=== PATIENT | female | born 1970 | race American Indian/Alaskan Native ===

== ENCOUNTER 2016-08-08 06:09 | Day surgery (SDC) | payer MEDICARE ==
[~2016-08-08 06:09] MED LIST: ANCEF/STERILE WATER 2 GM/20 ML 2 GM/20 ML SYRINGE IV NR; NACL 0.9% 1000 ML 1,000 ML IV SCH
[2016-08-08] MEDS ORDERED: NACL BACTERIOSTATIC INFILTRATI ONE (06:33)
[2016-08-08] MEDS ORDERED: PEPCID PO NR (07:00)
[2016-08-08] MEDS ORDERED: VERSED IV NR (07:00)
[2016-08-08] MEDS ORDERED: SUBLIMAZE ONE (07:18)
[2016-08-08] MEDS ORDERED: XYLOCAINE CARDIAC IV ONE (07:18)
[2016-08-08] MEDS ORDERED: DIPRIVAN 10 MG/ML IV ONE (07:18)
--- NOTE | 2016-08-08 07:32 | Anesthesia Consultation ---
Anesthesia Consult and Med Hx - Airway Anesthetic Teeth Evaluation: Dentures ROM Head & Neck: Adequate Mental/Hyoid Distance: Adequate Mallampati Class: Class II Intubation Access Assessment: Probably Good - Pulmonary Exam CTA: Yes - Cardiac Exam Cardiac Exam: RRR - Pre-Operative Health Status ASA Pre-Surgery Classification: ASA3 Proposed Anesthetic Plan: General - Pulmonary Hx Asthma: Yes (uses inhaler) COPD: No Hx Pneumonia: Yes - Cardiovascular System Hx Hypertension: Yes - Central Nervous System Hx Psychiatric Problems: No - Gastrointestinal Hx Gastroesophageal Reflux Disease: Yes - Endocrine Hx Renal Disease: Yes (chronic kidney disease stage 4; recent dialysis) Hx End Stage Renal Disease: Yes Hx Liver Disease: No (HIV) - Hematic Hx Anemia: Yes Hx Sickle Cell Disease: No
[2016-08-08] MEDS ORDERED: PROTAMINE SULFATE ONE (08:00)
[2016-08-08] MEDS ORDERED: HEPARIN 10,000 UNITS/10 ML ONE (08:00)
[2016-08-08] MEDS ORDERED: ePHEDrine SULFATE ONE (08:24)
[2016-08-08] MEDS ORDERED: HEPARIN 10,000 UNITS/10 ML 2,000 UNIT in NACL 0.9% 500 ML 500 ML IR ONE (08:46)
[2016-08-08] MEDS ORDERED: MARCAINE 0.25% INFILTRATI ONE ×2 (08:51)
[2016-08-08] MEDS ORDERED: NACL 0.9% IR ONE (08:55)
[2016-08-08] MEDS ORDERED: SODIUM BICARBONATE ONE (10:45)
[2016-08-08] MEDS ORDERED: NACL 0.9% 500 ML ONE (10:45)
[2016-08-08] MEDS ORDERED: NACL 0.9% IV ONE (11:00)
[2016-08-08] MEDS ORDERED: DDAVP IV ONE (11:00)
[2016-08-08] MEDS ORDERED: ZOFRAN ONE (11:01)
--- NOTE | 2016-08-08 11:12 | Operative Report ---
Operative Report Operative Report: Date of procedure: 08/08/2016 Pre-operative diagnosis: Endstage renal disease Post-operative diagnosis: Same Procedure name(s): Left brachiobasilic transposition fistula stage II. Surgeon: Fidencio Brennan MD, RPVI [employer]ob Pipes Assembler: None Anesthesia: Gen./local Findings #1 adequate sized basilic vein. #2 adequate size brachial artery. #3 the vein had gentle curve in the tunnel with no kinking. #4 palpable thrill in the fistula. #5 palpable radial pulse. #6 adequate hemostasis. Specimens: None EBL: 75 mL IV fluids: 75 mL Urine output: 0 Disposition: The recovery Indications: End-stage renal disease. Status post stage I brachiobasilic fistula creation. Procedure Patient was brought to the operating room and laid on the table in supine position. After general LMA anesthesia was achieved the basilic vein was marked with an ultrasound. The patient was prepped and draped in usual sterile fashion. The incision over the basilic vein above the elbow was made using #15 blade. Subcutaneous tissue was divided with Bovie electrocautery. The basilic vein was located and dissected for the length of the incision. All branches were ligated using 4-0 silk ties. The vein was dissected underneath the skin proximally to the site of the previous anastomosis to achieve adequate length. The second incision was made distally with a skin bridge in between and the vein was dissected further. Another incision was made in the axilla was having the skin bridge for about 4 cm in between the incisions. The incision was deepened with Bovie electrocautery the basilic vein was dissected free the branches were ligated with 4-0 silk ties. The care was taken not to injure the brachial cutaneous nerves. The dissection continued cephalad all the way to where the basilic vein entered axillary vein. Once adequate length of the vein was dissected and the vein was completely mobilized attention was turned to the brachial artery. The curved tunneler was used to create a subcutaneous tunnel from the brachial artery to the basilic axillary confluence. The tunnel was made in the fashion to make sure that the vein will not kink. Patient received 2000 units of heparin. The vein was disconnected distally from the original anastomosis and irrigated with heparinized saline. The vein dilated very well . It was attached to the tunneler and tunneled underneath the skin. The care was made to confirm that there were no kink or twist in the tunnel. It was irrigated with heparinized saline and thrill felt that the other end. The portion of the vein attached to the artery was spatulated using the Mendez scissor the distal end of the vein in the tunnel was spatulated using Mendez scissors. Then anastomosis was created using 2 6-0 Prolene running sutures. Prior to completion of the anastomosis back bleeding maneuvers were performed and there was good backbleeding. Anastomosis was then was completed after it was irrigated with heparinized saline. Once the vessel loops were released there was strong thrill in the fistula and no bleeding. The wounds were then closed using 3-0 Vicryl subcutaneous and 4-0 Monocryl subcuticular closure. The graft had strong palpable thrill. Patient tolerated procedure well. At the end of the case all instrument, sponge, and needle counts were correct
--- NOTE | 2016-08-08 11:16 | Short Stay Summary ---
Short Stay Documentation - History H&P: obtained from office - Allergies and Medications Current Medications: Allergies No Known Allergies Allergy (Verified 10/01/13 16:51) Home Medications Medication Instructions Recorded Confirmed Last Taken Type Atazanavir Sulfate [Reyataz] 200 mg PO QDAY #30 capsule 01/06/14 08/08/16 Rx Emtricitabin/Tenofovir [TRUVADA 1 tab PO QDAY #30 tablet 01/06/14 08/08/1608/07 Rx 200-300 mg] Ritonavir [Norvir] 100 mg PO QDAY #30 cap 01/06/14 08/08/16 08/07/16 Rx ALBUTEROL NEB's [Proventil 0.083% 2.5 mg IH TID PRN #30 neb 07/20/14 08/06/16 Rx NEBS] ALBUTEROL Inhaler [ProAir HFA 2 puff IH QID PRN #1 can 07/05/16 08/06/16 Unknown Rx Inhaler] Budesoni/Formotero 160-4.5(Nf) 2 puff IH BID #1 can 07/05/16 08/08/16 08/07/16 Rx [Symbicort 160-4.5 (Nf)] Ferrous Sulfate [Feosol 325 MG tab] 325 mg PO TID #90 tablet 07/05/16 08/08/16 08/07/16 Rx Pantoprazole [Protonix TAB] 40 mg PO QDAY #30 tablet 07/05/16 08/08/16 08/07/16 Rx amLODIPine [Norvasc] 10 mg PO QDAY #30 tablet 07/05/16 08/08/16 08/07/16 Rx cloNIDine-TTS PATCH [Catapres-Tts 0.2 mg TD QWEEK #10 patch 07/05/16 08/08/16 Rx Patch] Active Medications Famotidine (Pepcid) 20 mg PO PREOP NR Stop: 08/08/16 23:59 Last Admin: 08/08/16 07:06 Dose: 20 mg Cefazolin Sodium (Ancef/Sterile Water 2 Gm/20 Ml) 2 gm in 20 mls @ 80 mls/hr IV PREOP NR PRN Reason: Protocol Stop: 08/08/16 23:59 Sodium Chloride (Nacl 0.9% 1000 Ml) 1,000 mls @ 42 mls/hr IV DIRECT YARELI Stop: 08/08/16 23:59 Last Admin: 08/08/16 06:40 Dose: 42 mls/hr Desmopressin Acetate 28 mcg/ (Sodium Chloride) 57 mls @ 114 mls/hr IV ONCE ONE Stop: 08/08/16 11:29 Midazolam HCl (Versed) 2 mg IV PREOP NR Stop: 08/08/16 23:59 Last Admin: 08/08/16 07:35 Dose: 2 mg - Brief post op/procedure progress note Procedure: Pre-operative diagnosis: Endstage renal disease Post-operative diagnosis: Same Procedure name(s): Left brachiobasilic transposition fistula stage II. Surgeon: Fidencio Brennan MD, VI Survey Methodologist: None Anesthesia: Gen./local Findings #1 adequate sized basilic vein. #2 adequate size brachial artery. #3 the vein had gentle curve in the tunnel with no kinking. #4 palpable thrill in the fistula. #5 palpable radial pulse. #6 adequate hemostasis. Specimens: None EBL: 75 mL IV fluids: 75 mL Urine output: 0 Disposition: The recovery Short Stay Discharge Plan Activity: advance as tolerated, other (no heavy lifting with the left arm for 4- 6 weeks. Keep left arm elevated) Weight Bearing Status: Full Weight Bearing Diet: renal Wound: open to air Additional Instructions: Follow-up with Dr. Brennan in 2 weeks. Follow up with: PRIMARY CAREMD [Primary Care Provider] - 7 Days
[2016-08-08] MEDS: DILAUDID IV PRN ×4 (11:27→12:00)
--- NOTE | 2016-08-08 11:27 | XRay Report ---
LEFT HUMERUS, ONE VIEW History: Instrument count. Findings: Single view of the left arm was obtained after surgery for instrument count. Notes say they are looking for a small needle. There is soft tissue swelling and gas in the medial upper left arm but no evidence for radiopaque foreign body. Tiny richard are noted. The humerus is intact. Impression: No radiopaque foreign body is detected.
[2016-08-08] MEDS ORDERED: DILAUDID ONE (11:28)
--- NOTE | 2016-08-08 12:02 | Post Anesthesia Evaluation ---
- Post Anesthesia Evaluation Airway Patent: Yes Stable Respiratory Function: Yes Nausea/Vomiting: No Temp > 96.8F: Yes Pain Manageable: Yes Adequeate Hydration: Yes Anesthesia Complications: No Block Receding Appropriately: Not Applicable Patient on Ventilator: No
[2016-08-08] MEDS ORDERED: VERSED IV PRN (12:07)
[2016-08-08 14:08] VITALS: BP 156/98
== END 2016-08-08 14:10 | disposition home or self-care (01) ==
LOC: OR 06:09
PROVIDERS: ATTEND Surgery Vascular Surgery
DX: I12.0 Hypertensive chronic kidney disease with stage 5 chronic kidney disease or end stage renal disease (principal); N18.6 End stage renal disease; J45.909 Unspecified asthma, uncomplicated; K21.9 Gastro-esophageal reflux disease without esophagitis; D64.9 Anemia, unspecified; Z87.01 Personal history of pneumonia (recurrent); Z98.51 Tubal ligation status
CPT/HCPCS: 36415; 36821; 73060; 81025; 84132; J0690; J1170; J1644; J2001; J2250; J2405; J2597; J2704; J2720; J3010; J7030; J7040

== ENCOUNTER 2016-08-18 10:49 | Emergency (ER) | payer MEDICARE ==
[2016-08-18 11:29] VITALS: BP 169/102
[2016-08-18 13:34] LABS: Albumin/Globulin Ratio 0.7 %; BUN/Creatinine Ratio 2.5; Bilirubin,Total 0.7 mg/dL (0.1-1.2); Calcium 9.2 mg/dL (8.4-10.2); Chloride 101.1 mmol/L (98-107); Potassium 4.5 mmol/L (3.6-5.0); Total Protein 7.4 g/dL (6.3-8.2)
[2016-08-18 13:44] LABS: Hematocrit 31.1 % (30.3-42.9); Hemoglobin 9.7 gm/dl (10.1-14.3); Mean Corpuscular HGB Conc 31 % (30-34); Mean Corpuscular Hemoglobin 27 pg (28-32); Mean Corpuscular Volume 88 fl (79-97); Platelet Count 133 K/mm3 (140-440); Red Blood Count 3.53 M/mm3 (3.65-5.03); Red Cell Distribution Width 20.3 % (13.2-15.2); White Blood Count 3.7 K/mm3 (4.5-11.0)
[2016-08-18 14:23] LABS: Anisocytosis 2+; Basophils % (Manual) 0 % (0.0-1.8); Blastocytes % (Manual) 0 %; Elliptocytes 1+
[2016-08-18 14:24] LABS: Diff Status Complete; Hypochromasia 1+; Ovalocytes 2+; Poikilocytosis Few; Tear Drop Cells 1+
--- NOTE | 2016-08-18 17:05 | Emergency Department Report ---
ED Abdominal Pain HPI - General Chief Complaint: Abdominal Pain Stated Complaint: SEVERE CONSTIPATION Time Seen by Provider: 08/18/16 16:21 Source: patient Mode of arrival: Ambulatory Limitations: No Limitations - History of Present Illness Initial Comments: 45-year-old female presented to the emergency department complaining of constipation. Patient states she has not had a bowel movement approximately one week. Patient has been taking Percocet following the recent placement of a left arm fistula for dialysis. She states she has been taking MiraLAX, but has had no relief. Patient states she began having mild nausea last night, but has not vomited. There are no other complaints. -: Gradual, week(s) (1) Location: diffuse Radiation: none Severity: mild Severity scale (0 -10): 1 Quality: cramping Consistency: intermittent Improves With: nothing Worsens With: nothing Associated Symptoms: nausea, constipation - Related Data Previous Rx's Medication Instructions Recorded Last Taken Type Atazanavir Sulfate [Reyataz] 200 mg PO QDAY #30 capsule 01/06/14 08/07/16 Rx Emtricitabin/Tenofovir [TRUVADA 1 tab PO QDAY #30 tablet 01/06/14 08/07/16 Rx 200-300 mg] Ritonavir [Norvir] 100 mg PO QDAY #30 cap 01/06/14 08/07/16 Rx ALBUTEROL NEB's [Proventil 0.083% 2.5 mg IH TID PRN #30 neb 07/20/14 07/02/16 Rx NEBS] ALBUTEROL Inhaler [ProAir HFA 2 puff IH QID PRN #1 can 07/05/16 Unknown Rx Inhaler] Budesoni/Formotero 160-4.5(Nf) 2 puff IH BID #1 can 07/05/16 08/07/16 Rx [Symbicort 160-4.5 (Nf)] Ferrous Sulfate [Feosol 325 MG tab] 325 mg PO TID #90 tablet 07/05/16 08/07/16 Rx Pantoprazole [Protonix TAB] 40 mg PO QDAY #30 tablet 07/05/16 08/07/16 Rx amLODIPine [Norvasc] 10 mg PO QDAY #30 tablet 07/05/16 08/07/16 Rx cloNIDine-TTS PATCH [Catapres-Tts 0.2 mg TD QWEEK #10 patch 07/05/16 08/07/16 Rx Patch] oxyCODONE /ACETAMINOPHEN [Percocet 1 - 2 tab PO Q4HR #40 tab 08/08/16 Unknown Rx 5/325] Docusate Sodium [Colace] 100 mg PO BID PRN #60 capsule 08/18/16 Unknown Rx Magnesium Citrate [Citrate of 300 ml PO ONCE #1 bottle 08/18/16 Unknown Rx Magnesia] Allergies Allergy/AdvReac Type Severity Reaction Status Date / Time No Known Allergies Allergy Verified 10/01/13 16:51 ED Review of Systems ROS: Stated complaint: SEVERE CONSTIPATION Other details as noted in HPI Comment: All other systems reviewed and negative Gastrointestinal: abdominal pain, nausea, constipation ED Past Medical Hx - Past Medical History Previous Medical History?: Yes Hx Hypertension: Yes Hx Congestive Heart Failure: No Hx Diabetes: No Hx GERD: Yes Hx Liver Disease: No Hx Renal Disease: Yes (dialysis) Hx Sickle Cell Disease: No Hx Asthma: Yes (uses inhaler) Hx COPD: No Hx HIV: Yes Additional medical history: anemia, uterine fibroids - Surgical History Past Surgical History?: Yes Additional Surgical History: Bilateral tubal ligation, left chest PermCath, LUE fistula - Family History Family history: no significant - Social History Smoking Status: Never Smoker Substance Use Type: None - Medications Home Medications: Home Medications Medication Instructions Recorded Confirmed Last Taken Type Atazanavir Sulfate [Reyataz] 200 mg PO QDAY #30 capsule 01/06/14 08/08/16 Rx Emtricitabin/Tenofovir [TRUVADA 1 tab PO QDAY #30 tablet 01/06/14 08/08/1608/07 Rx 200-300 mg] Ritonavir [Norvir] 100 mg PO QDAY #30 cap 01/06/14 08/08/16 08/07/16 Rx ALBUTEROL NEB's [Proventil 0.083% 2.5 mg IH TID PRN #30 neb 07/20/14 08/06/16 Rx NEBS] ALBUTEROL Inhaler [ProAir HFA 2 puff IH QID PRN #1 can 07/05/16 08/06/16 Unknown Rx Inhaler] Budesoni/Formotero 160-4.5(Nf) 2 puff IH BID #1 can 07/05/16 08/08/16 08/07/16 Rx [Symbicort 160-4.5 (Nf)] Ferrous Sulfate [Feosol 325 MG tab] 325 mg PO TID #90 tablet 07/05/16 08/08/16 08/07/16 Rx Pantoprazole [Protonix TAB] 40 mg PO QDAY #30 tablet 07/05/16 08/08/16 08/07/16 Rx amLODIPine [Norvasc] 10 mg PO QDAY #30 tablet 07/05/16 08/08/16 08/07/16 Rx cloNIDine-TTS PATCH [Catapres-Tts 0.2 mg TD QWEEK #10 patch 07/05/16 08/08/16 Rx Patch] oxyCODONE /ACETAMINOPHEN [Percocet 1 - 2 tab PO Q4HR #40 tab 08/08/16 Unknown Rx 5/325] Docusate Sodium [Colace] 100 mg PO BID PRN #60 capsule 08/18/16 Unknown Rx Magnesium Citrate [Citrate of 300 ml PO ONCE #1 bottle 08/18/16 Unknown Rx Magnesia] ED Physical Exam - General Limitations: No Limitations General appearance: alert, in no apparent distress - Head Head exam: Present: atraumatic, normocephalic - Eye Eye exam: Present: normal appearance, PERRL, EOMI - ENT ENT exam: Present: normal exam, normal orophraynx, mucous membranes moist - Neck Neck exam: Present: normal inspection, full ROM. Absent: tenderness - Respiratory Respiratory exam: Present: normal lung sounds bilaterally. Absent: respiratory distress - Cardiovascular Cardiovascular Exam: Present: regular rate, normal rhythm, normal heart sounds - GI/Abdominal GI/Abdominal exam: Present: soft, hyperactive bowel sounds. Absent: distended, tenderness - Extremities Exam Extremities exam: Present: normal inspection, full ROM. Absent: tenderness - Back Exam Back exam: Present: normal inspection, full ROM. Absent: tenderness - Neurological Exam Neurological exam: Present: alert, oriented X3. Absent: motor sensory deficit - Skin Skin exam: Present: warm, dry, intact ED Course Vital Signs 08/18/16 08/18/16 11:18 16:00 Temperature 98.5 F Pulse Rate 69 Respiratory 18 18 Rate Blood Pressure 169/102 O2 Sat by Pulse 99 Oximetry ED Medical Decision Making - Lab Data Result diagrams: 08/18/16 13:06 08/18/16 13:06 - Radiology Data Radiology results: image reviewed interpreted by me: 2 views of the abdomen show moderate stool burden without evidence of bowel obstruction. - Medical Decision Making Lab and imaging results reviewed and discussed with the patient. Patient is offered an enema to help with her constipation. At this time, patient is declining enema and would rather take magnesium citrate at home. Patient will be prescribed this as well as Colace for stool softener. Patient will be discharged home to follow up with her primary care physician. - Differential Diagnosis opioid induced constipation Critical care attestation.: If time is entered above; I have spent that time in minutes in the direct care of this critically ill patient, excluding procedure time. ED Disposition Clinical Impression: Constipation due to pain medication Disposition: DISCHARGED TO HOME OR SELFCARE Is pt being admited?: No Condition: Stable Instructions: Constipation (ED) Prescriptions: Docusate Sodium [Colace] 100 mg PO BID PRN #60 capsule PRN Reason: Constipation Magnesium Citrate [Citrate of Magnesia] 300 ml PO ONCE #1 bottle Referrals: PRIMARY CARE, [Primary Care Provider] - 3-5 Days Time of Disposition: 17:08
--- NOTE | 2016-08-19 09:59 | XRay Report ---
ABDOMINAL SERIES TWO VIEWS: 08/18/16 10:49:00 CLINICAL: Abdominal pain. FINDINGS: Supine and upright views demonstrate a normal bowel gas pattern with a large volume of stool in the colon. No distended small bowel and no air-fluid levels. No pneumoperitoneum. No mass or suspicious calcifications. Phleboliths in the pelvis. Degenerative change in the spine. IMPRESSION: Negative abdomen with abundant stool.
== END 2016-08-18 17:15 | disposition home or self-care (01) ==
LOC: ED 10:49
DX: K59.00 Constipation, unspecified (principal); I10 Essential (primary) hypertension; K21.9 Gastro-esophageal reflux disease without esophagitis; J45.909 Unspecified asthma, uncomplicated; D64.9 Anemia, unspecified
CPT/HCPCS: 36415; 74020; 80053; 83690; 84703; 85007; 85025

== ENCOUNTER 2017-02-06 14:33 | Emergency (ER) | payer MEDICARE ==
[2017-02-06 15:04] VITALS: BP 138/79
[2017-02-06] MEDS ORDERED: BOOSTRIX IM ONE (20:08)
--- NOTE | 2017-02-07 04:02 | Emergency Department Report ---
Entered by VINNIE JERNIGAN, acting as scribe for MASSIMO DAO NP. - General Chief complaint: Skin Rash Stated complaint: RASH ON RIGHT SIDE OF CHEST Time Seen by Provider: 02/06/17 19:24 Source: patient Mode of arrival: Ambulatory Limitations: No Limitations - History of Present Illness Initial comments: This is a 46 y/o female, nontoxic, well nourished in appearance, no acute signs of distress with a PMHx of HTN, GERD, asthma, HIV, renal disease, anemia, and uterine fibroids presents with a rash to the right side of back that began 2 days ago. Describes the rash as burning in quality. Pt denies fever, chills, nausea, vomiting, cough, chest pain, SOB, SIMPSON or dizziness, numbness, and tingling. Patient reports this rash is similar to her previous Shingles rash, which was alleviated with Acyclovir. NKDA. Patient stated CD4 count is above 200. MD complaint: rash Onset/Timin -: days(s) Tetanus Up to Date: no Location: back (RT side) Severity: mild Quality: burning Consistency: constant Improves with: medication Worsens with: none (Acyclovir) Context: none Associated symptoms: denies other symptoms Treatments Prior to Arrival: none - Related Data Previous Rx's Medication Instructions Recorded Last Taken Type Atazanavir Sulfate [Reyataz] 200 mg PO QDAY #30 capsule 01/06/14 08/07/16 Rx Emtricitabin/Tenofovir [TRUVADA 1 tab PO QDAY #30 tablet 01/06/14 08/07/16 Rx 200-300 mg] Ritonavir [Norvir] 100 mg PO QDAY #30 cap 01/06/14 08/07/16 Rx ALBUTEROL NEB's [Proventil 0.083% 2.5 mg IH TID PRN #30 neb 07/20/14 07/02/16 Rx NEBS] ALBUTEROL Inhaler [ProAir HFA 2 puff IH QID PRN #1 can 07/05/16 Unknown Rx Inhaler] Budesoni/Formotero 160-4.5(Nf) 2 puff IH BID #1 can 07/05/16 08/07/16 Rx [Symbicort 160-4.5 (Nf)] Ferrous Sulfate [Feosol 325 MG tab] 325 mg PO TID #90 tablet 07/05/16 08/07/16 Rx Pantoprazole [Protonix TAB] 40 mg PO QDAY #30 tablet 07/05/16 08/07/16 Rx amLODIPine [Norvasc] 10 mg PO QDAY #30 tablet 07/05/16 08/07/16 Rx cloNIDine-TTS PATCH [Catapres-Tts 0.2 mg TD QWEEK #10 patch 07/05/16 08/07/16 Rx Patch] oxyCODONE /ACETAMINOPHEN [Percocet 1 - 2 tab PO Q4HR #40 tab 08/08/16 Unknown Rx 5/325] Docusate Sodium [Colace] 100 mg PO BID PRN #60 capsule 08/18/16 Unknown Rx Magnesium Citrate [Citrate of 300 ml PO ONCE #1 bottle 08/18/16 Unknown Rx Magnesia] Acyclovir [Zovirax Tab] 800 mg PO 5XD 10 Days 02/06/17 Unknown Rx Allergies Allergy/AdvReac Type Severity Reaction Status Date / Time No Known Allergies Allergy Verified 02/06/17 15:01 Abscess Boil HPI - HPI Chief Complaint: Skin Rash Stated Complaint: RASH ON RIGHT SIDE OF CHEST Time Seen by Provider: 02/06/17 19:24 Home Medications: Previous Rx's Medication Instructions Recorded Last Taken Type Atazanavir Sulfate [Reyataz] 200 mg PO QDAY #30 capsule 01/06/14 08/07/16 Rx Emtricitabin/Tenofovir [TRUVADA 1 tab PO QDAY #30 tablet 01/06/14 08/07/16 Rx 200-300 mg] Ritonavir [Norvir] 100 mg PO QDAY #30 cap 01/06/14 08/07/16 Rx ALBUTEROL NEB's [Proventil 0.083% 2.5 mg IH TID PRN #30 neb 07/20/14 07/02/16 Rx NEBS] ALBUTEROL Inhaler [ProAir HFA 2 puff IH QID PRN #1 can 07/05/16 Unknown Rx Inhaler] Budesoni/Formotero 160-4.5(Nf) 2 puff IH BID #1 can 07/05/16 08/07/16 Rx [Symbicort 160-4.5 (Nf)] Ferrous Sulfate [Feosol 325 MG tab] 325 mg PO TID #90 tablet 07/05/16 08/07/16 Rx Pantoprazole [Protonix TAB] 40 mg PO QDAY #30 tablet 07/05/16 08/07/16 Rx amLODIPine [Norvasc] 10 mg PO QDAY #30 tablet 07/05/16 08/07/16 Rx cloNIDine-TTS PATCH [Catapres-Tts 0.2 mg TD QWEEK #10 patch 07/05/16 08/07/16 Rx Patch] oxyCODONE /ACETAMINOPHEN [Percocet 1 - 2 tab PO Q4HR #40 tab 08/08/16 Unknown Rx 5/325] Docusate Sodium [Colace] 100 mg PO BID PRN #60 capsule 08/18/16 Unknown Rx Magnesium Citrate [Citrate of 300 ml PO ONCE #1 bottle 08/18/16 Unknown Rx Magnesia] Acyclovir [Zovirax Tab] 800 mg PO 5XD 10 Days 02/06/17 Unknown Rx Allergies/Adverse Reactions: Allergies Allergy/AdvReac Type Severity Reaction Status Date / Time No Known Allergies Allergy Verified 02/06/17 15:01 ED Review of Systems Comment: All other systems reviewed and negative Constitutional: denies: chills, fever Eyes: denies: eye pain, eye discharge, vision change ENT: denies: ear pain, throat pain Respiratory: denies: cough, orthopnea, shortness of breath, SOB with exertion, SOB at rest, stridor, wheezing Cardiovascular: denies: chest pain, palpitations, dyspnea on exertion, orthopnea , edema, syncope, paroxysmal nocturnal dyspnea Endocrine: no symptoms reported Gastrointestinal: denies: abdominal pain, nausea, diarrhea Genitourinary: denies: urgency, dysuria, discharge Musculoskeletal: denies: back pain, joint swelling, arthralgia, myalgia Skin: rash (RT side of back). denies: lesions Neurological: denies: headache, weakness, numbness, paresthesias, confusion, abnormal gait, vertigo Psychiatric: denies: anxiety, depression Hematological/Lymphatic: denies: easy bleeding, easy bruising ED Past Medical Hx - Past Medical History Hx Hypertension: Yes Hx Congestive Heart Failure: No Hx Diabetes: No Hx GERD: Yes Hx Liver Disease: No Hx Renal Disease: Yes (dialysis) Hx Sickle Cell Disease: No Hx Asthma: Yes (uses inhaler) Hx COPD: No Hx HIV: Yes Additional medical history: anemia, uterine fibroids - Surgical History Additional Surgical History: Bilateral tubal ligation, left chest PermCath, LUE fistula - Social History Smoking Status: Never Smoker Substance Use Type: None - Medications Home Medications: Home Medications Medication Instructions Recorded Confirmed Last Taken Type Atazanavir Sulfate [Reyataz] 200 mg PO QDAY #30 capsule 01/06/14 08/08/16 Rx Emtricitabin/Tenofovir [TRUVADA 1 tab PO QDAY #30 tablet 01/06/14 08/08/1608/07 Rx 200-300 mg] Ritonavir [Norvir] 100 mg PO QDAY #30 cap 01/06/14 08/08/16 08/07/16 Rx ALBUTEROL NEB's [Proventil 0.083% 2.5 mg IH TID PRN #30 neb 07/20/14 08/06/16 Rx NEBS] ALBUTEROL Inhaler [ProAir HFA 2 puff IH QID PRN #1 can 07/05/16 08/06/16 Unknown Rx Inhaler] Budesoni/Formotero 160-4.5(Nf) 2 puff IH BID #1 can 07/05/16 08/08/16 08/07/16 Rx [Symbicort 160-4.5 (Nf)] Ferrous Sulfate [Feosol 325 MG tab] 325 mg PO TID #90 tablet 07/05/16 08/08/16 08/07/16 Rx Pantoprazole [Protonix TAB] 40 mg PO QDAY #30 tablet 07/05/16 08/08/16 08/07/16 Rx amLODIPine [Norvasc] 10 mg PO QDAY #30 tablet 07/05/16 08/08/16 08/07/16 Rx cloNIDine-TTS PATCH [Catapres-Tts 0.2 mg TD QWEEK #10 patch 07/05/16 08/08/16 Rx Patch] oxyCODONE /ACETAMINOPHEN [Percocet 1 - 2 tab PO Q4HR #40 tab 08/08/16 Unknown Rx 5/325] Docusate Sodium [Colace] 100 mg PO BID PRN #60 capsule 08/18/16 Unknown Rx Magnesium Citrate [Citrate of 300 ml PO ONCE #1 bottle 08/18/16 Unknown Rx Magnesia] Acyclovir [Zovirax Tab] 800 mg PO 5XD 10 Days 02/06/17 Unknown Rx ED Physical Exam - General Limitations: No Limitations General appearance: alert, in no apparent distress - Head Head exam: Present: atraumatic, normocephalic - Eye Eye exam: Present: normal appearance, PERRL, EOMI. Absent: scleral icterus, conjunctival injection, nystagmus, periorbital swelling, periorbital tenderness Pupils: Present: normal accommodation - ENT ENT exam: Present: normal exam, normal orophraynx, mucous membranes moist, TM's normal bilaterally, normal external ear exam - Neck Neck exam: Present: normal inspection, full ROM. Absent: tenderness, meningismus, lymphadenopathy, thyromegaly - Respiratory Respiratory exam: Present: normal lung sounds bilaterally. Absent: respiratory distress, wheezes, rales, rhonchi, stridor, chest wall tenderness, accessory muscle use, decreased breath sounds, prolonged expiratory - Cardiovascular Cardiovascular Exam: Present: regular rate, normal rhythm, normal heart sounds. Absent: bradycardia, tachycardia, irregular rhythm, systolic murmur, diastolic murmur, rubs, gallop - GI/Abdominal GI/Abdominal exam: Present: soft, normal bowel sounds. Absent: distended, tenderness, guarding, rebound, rigid - Extremities Exam Extremities exam: Present: normal inspection, full ROM, normal capillary refill. Absent: tenderness, pedal edema, joint swelling, calf tenderness - Back Exam Back exam: Present: full ROM, rash noted (RT side of back consistent with shingles). Absent: normal inspection, tenderness, CVA tenderness (R), CVA tenderness (L), muscle spasm, paraspinal tenderness, vertebral tenderness - Neurological Exam Neurological exam: Present: alert, oriented X3, CN II-XII intact, normal gait, reflexes normal. Absent: motor sensory deficit - Psychiatric Psychiatric exam: Present: normal affect, normal mood - Skin Skin exam: Present: warm, dry, intact, rash (dermatome rash with erythematous papules and vesicles present to the right side of the back that is consistent with the shingles) ED Course Vital Signs 02/06/17 15:01 Temperature 99 F Pulse Rate 91 H Respiratory 18 Rate Blood Pressure 138/79 O2 Sat by Pulse 99 Oximetry - Reevaluation(s) Reevaluation #1: 02/06/17 20:10 Patient is speaking in full sentences with no signs of distress ntoed. ED Medical Decision Making - Medical Decision Making This is a 46-year-old female that presents with shingles. Patient was examined myself. Patient is stable. Patient received acyclovir discharge. Patient instructed that this is a contact should be cautious. Patient was instructed not to consume any alcohol while taking medication. At time time of discharge, the patient does not seem toxic or ill in appearance. No acute signs of distress noted. Patient agrees to discharge treatment plan of care. No further questions noted by the patient. ED Disposition Clinical Impression: Shingles Qualifiers: Herpes zoster complications: unspecified herpes zoster complication Qualified Code(s): B02.8 - Zoster with other complications Disposition: - TO HOME OR SELFCARE Is pt being admited?: No Does the pt Need Aspirin: No Condition: Stable Instructions: Acyclovir (By mouth), Herpes Zoster (ED) Additional Instructions: Follow-up with your primary care doctor in 3-5 days or symptoms worsen or continue presents emergency room as soon as possible. Do not drink any alcohol while taking Acyclovir. Please be advised that this is a contact precaution. Prescriptions: Acyclovir [Zovirax Tab] 800 mg PO 5XD 10 Days Referrals: PRIMARY CAREMD [Primary Care Provider] - 3-5 Days ARTEMIO BARRERA MD [Staff Physician] - 3-5 Days [facility] [Outside] - 3-5 Days [facility] [Outside] - 3-5 Days Forms: Work/School Release Form(ED) This documentation as recorded by the RERE kaiser JASMINE,accurately reflects the service I personally performed and the decisions made by ,MASSIMO DAO, LEOBARDO.
== END 2017-02-06 21:44 | disposition home or self-care (01) ==
LOC: ED 14:33
DX: B02.8 Zoster with other complications (principal); I10 Essential (primary) hypertension; K21.9 Gastro-esophageal reflux disease without esophagitis
CPT/HCPCS: 90471; 90715; 99281

== ENCOUNTER 2017-04-11 11:02 | Day surgery (SDC) | payer MEDICARE ==
[2017-04-11] MEDS ORDERED: HEPARIN/NS 5000 UNIT/500ML(CATH LAB) 1,000 ML IR ONE (13:57)
[2017-04-11] MEDS ORDERED: HEPARIN 10,000 UNITS/10 ML ONE (13:57)
[2017-04-11] MEDS ORDERED: ANCEF/STERILE WATER 2 GM/20 ML 2 GM/20 ML SYRINGE IV ONE (13:58)
[2017-04-11] MEDS ORDERED: NACL 0.9% 250ML 250 ML ONE ×2 (13:58→14:04)
[2017-04-11] MEDS ORDERED: XYLOCAINE 2% INFILTRATI ONE (13:58)
[2017-04-11] MEDS: VERSED ONE ×5 (14:22→15:07)
[2017-04-11] MEDS: SUBLIMAZE ONE ×6 (14:22→15:22)
[2017-04-11] MEDS ORDERED: CATHFLO ONE (14:36)
[2017-04-11] MEDS ORDERED: WATER FOR INJ (PF) 10 ML ONE (14:37)
[2017-04-11] MEDS ORDERED: SUBLIMAZE ONE (15:37)
[2017-04-11] MEDS ORDERED: BENADRYL ONE (15:39)
--- NOTE | 2017-04-11 16:11 | Short Stay Summary ---
Short Stay Documentation Date of service: 04/11/17 Narrative H&P: 46 year old female with ESRD with brachial artery to basilic vein thrombosed AVF. - History Principal diagnosis: Left arm AVF malfunction Past Medical History: dialysis Past Surgical History: Other (left brachial artery to basilic vein transposition ) - Allergies and Medications Current Medications: Allergies No Known Allergies Allergy (Verified 02/06/17 15:01) Home Medications Medication Instructions Recorded Confirmed Last Taken Type ALBUTEROL NEB's [Proventil 0.083% 2.5 mg IH TID PRN #30 neb 07/20/14 04/11/17 Rx NEBS] unit dose ALBUTEROL Inhaler [ProAir HFA 2 puff IH QID PRN #1 can 07/05/16 04/11/17 Rx Inhaler] 2 puffs Budesoni/Formotero 160-4.5(Nf) 2 puff IH BID #1 can 07/05/16 04/11/17 08/07/16 Rx [Symbicort 160-4.5 (Nf)] Docusate Sodium [Colace] 100 mg PO BID PRN #60 capsule 08/18/16 04/11/17 Rx 100mg Abacavir [Ziagen TAB] 2 tab PO DAILY 04/11/17 04/11/17 04/10/17 History 1 tab Darunavir/Cobicistat (Nf) 1 tab PO DAILY 04/11/17 04/11/17 04/10/17 History [Prezcobix 800 mg-150 mg (Nf)] 1 tab Losartan Potassium [Losartan 1 tab PO DAILY 04/11/17 04/11/17 04/11/17 04:00 History Potassium] 100mg lamiVUDine [Epivir] 1 tab PO Q48HR 04/11/17 04/11/17 04/09/17 History 1 tab - Physical exam General appearance: no acute distress Lungs: Normal air movement Gastrointestinal: normal Extremities: normal temperature, normal color, abnormal (thrombosed left AVF) - Brief post op/procedure progress note Date of procedure: 04/11/17 Pre-op diagnosis: left arm AVF Post-op diagnosis: same Procedure: thrombectomy of left AVF Anesthesia: local (w/ conscious sedation) Surgeon: FAMILIA ROSS KAYLEE Estimated blood loss: minimal Condition: stable - Hospital course Hospital course: Ready for discharge in 1 hr. - Disposition Condition at discharge: Stable Disposition: DC-01 TO HOME OR SELFCARE - Discharge Diagnoses (1) Malfunction of arteriovenous shunt Status: Acute Short Stay Discharge Plan Activity: advance as tolerated Weight Bearing Status: Weight Bear as Tolerated Diet: renal Wound: keep clean and dry (keep left AVF clean) Follow up with: PRIMARY CAREMD [Primary Care Provider] - 7 Days
--- NOTE | 2017-04-11 16:19 | Operative Report ---
Operative Report Operative Report: EXAM: 1. Ultrasound-guided access towards the venous outflow 2. Selection of the left innominate vein and left subclavian vein with venography 3. Infusion of 4 mg of TPA throughout the basilic vein AV fistula 4. Angioplasty of the axillary vein and basilic vein with a 7 mm x 200 mm [place] balloon 5. Trerotola Mechanical thrombectomy of the basilic vein 6. Nate thrombectomy from the basilic vein to the venous outflow 7. Ultrasound-guided access towards the arterial anastomosis 8. Selection of the brachial artery and a retrograde fashion with angiography of the left upper extremity 9. Nate thrombectomy from the anastomosis to the arterial sheath 10. Nate thrombectomy from the venous sheath to the venous outflow 11. Angioplasty of the anastomosis, Nando anastomotic segment, and peripheral basilic vein with a 6 mm x 120 mm angioplasty balloon 12. Angioplasty of the distal basilic vein and axillary vein with an 8 mm x 40 mm angioplasty balloon INDICATION: THROMBOSED LEFT ARM AV BRACHIO BASILIC AVF WITH END-STAGE RENAL DISEASE. DATE: 04/11/17 MEDICATIONS: Please refer to nursing documentation for complete list of medications and heparin administration. VERSED AND FENTANYL TITRATED TO MODERATE SEDATION. THE PATIENT WAS MONITORED UNDER CONTINUOUS CARDIOPULMONARY MONITORING THROUGHOUT THE CASE. COMPLICATIONS: NONE IMMEDIATE VP DIGITAL MARKETING: FAMILIA PAGE MD PROCEDURE: The procedure was discussed with the patient and the risks, benefits, and alternatives were discussed with the patient. Informed consent was obtained. The patient was transported into the angiography suite in stable condition and placed on the angiographic table. The left arm was assessed under real-time ultrasound which demonstrated a thrombosed left arm AV fistula. The patient was prepped and draped in a sterile fashion. Lidocaine was used to anesthetize the skin. Under ultrasound guidance, the AV fistula was punctured with the needle pointing towards the venous limb. 0.018 inch wire was advanced through the needle and this was exchanged for a transitional dilator. The inner dilator and wire were removed and a 0.035 inch Brice wire was advanced through the transitional dilator. The dilator was exchanged for a 7 Barbadian short sheath. Angled catheter was advanced over the wire and the wire was advanced into the inferior vena cava under fluoroscopic guidance. Then the wire was removed and the Angled catheter was used to perform a pullback venogram. Digital subtraction venography was performed in the left brachiocephalic vein and subsequently the left subclavian vein which demonstrated no central obstruction to flow. The catheter was pulled back until clot was encountered. 4 mg of TPA were infused through the length of the clot to the sheath as the arterial anastomosis was manually compressed. Catheter was exchanged for an 7 mm x 200 mm balloon and the venous limb was sequentially venoplasty. Trerotola thrombectomy device was used multiple times through the venous limb. Trerotola device was then removed. Angled catheter and Brice wire were negotiated into the inferior vena cava. The nate balloon was used to sweep from the sheath to the central veins. The arm was then punctured towards the arterial anastomosis under ultrasound guidance. 0.018 inch wire was advanced through the needle and exchanged for transitional dilator. The inner dilator and wire were removed and a 0.035 inch Brice wire was advanced to the transitional dilator. The dilator was exchanged for 6 Barbadian short sheath. The angled catheter was advanced over the 0.035 wire and the wire was advanced into the cabazon brachial artery in a retrograde fashion. Digital subtraction angiography was performed which demonstrated patency of the brachial artery proximal and distal to the anastomosis with occlusion of the basilic vein AV fistula. Nate catheter was inflated and use to sweep the anastomosis multiple times, pulling the plug towards the venous limb. Nate does then used to sweep from the venous sheath to the central veins. Blood was aspirated from both sheaths. Nate catheter was exchanged for the angled catheter and digital subtraction angiography was performed. This demonstrated severe narrowing of the para anastomotic portion of the AV fistula and peripheral portion of the AV fistula with mild narrowing of the arterial anastomosis. There is a small amount of residual clot in the midportion of the basilic vein. The distal basilic vein has severe narrowing and there is severe narrowing of the axillary vein. 6 mm x 120 mm angioplasty balloon was advanced into the perianastomotic, peripheral portion of the basilic vein, and anastomosis and sequentially angioplasty was performed. Digital subtraction angiography demonstrated resolution of the anastomosis, perianastomotic, and peripheral portion of the basilic vein narrowing. Trerotola thrombectomy was then performed of the midportion of the basilic vein. Digital subtraction angiography demonstrated resolution of the residual thrombus in the basilic vein. 8 mm x 40 mm angioplasty balloon was used to perform angioplasty of the distal basilic vein in the axillary vein. Sequential angioplasty was performed. Digital subtraction angiography done demonstrated minimal residual narrowing. There was an excellent thrill in the AV fistula. All the wires were removed. 3-0 Vicryl sutures were used to close the fistula access sites. During the procedure, one of the dialysis access sites began to bleed and was closed with 4-0 Vicryl. Dermabond was applied. Pressure was held until hemostasis was achieved. The patient was then transferred to the outpatient recovery area. FINDINGS: Please see the procedure note for the findings. IMPRESSION: 1. Successful pharmacomechanical thrombectomy of the thrombosed left AV fistula. 2. Successful venoplasty of the axillary vein stent, entirety of the basilic vein, and arterial anastomosis.
[2017-04-11] MEDS ORDERED: PERCOCET 5/325 PO ONE (16:20)
[2017-04-11 17:17] VITALS: BP 180/99
== END 2017-04-11 17:15 | disposition home or self-care (01) ==
LOC: CATHLABREC 11:02
PROVIDERS: ATTEND Radiology Diagnostic Radiology
DX: T82.868A Thrombosis due to vascular prosthetic devices, implants and grafts, initial encounter (principal); Y83.1 Surgical operation with implant of artificial internal device as the cause of abnormal reaction of the patient, or of later complication, without mention of misadventure at the time of the procedure; Z79.899 Other long term (current) drug therapy; I12.0 Hypertensive chronic kidney disease with stage 5 chronic kidney disease or end stage renal disease; N18.6 End stage renal disease; J45.909 Unspecified asthma, uncomplicated; K21.9 Gastro-esophageal reflux disease without esophagitis; Z82.49 Family history of ischemic heart disease and other diseases of the circulatory system; Z98.51 Tubal ligation status; Z98.890 Other specified postprocedural states; Z80.8 Family history of malignant neoplasm of other organs or systems
CPT/HCPCS: 36415; 36905; 84132; 99156; 99157; C1725; C1751; C1757; C1769; C1894; J0690; J1200; J1644; J2250; J2997; J3010; J7050; Q9967

== ENCOUNTER → 2018-01-09 | Outpatient (CLI) | payer MEDICARE ==
--- NOTE | 2018-01-09 17:28 | Cat Scan Report ---
FINAL REPORT EXAM: CT CHEST WO CON HISTORY: END STAGE RENAL DISEASE TECHNIQUE: Axial images were performed from the lung apices to the bases. Multiplanar reformats are performed on the acquisition scanner. Total exam DLP 654.37 mGy-cm Comparison: 09/02/2017 at which time there were patchy infiltrates in the right lung base FINDINGS: There are again noted patchy and somewhat more diffuse infiltrates in the right lung base compared with previous exam. There has been interval development of a peripheral subpleural masslike density measuring 3.1 x 1.6 centimeters. This finding could represent a mass, consolidation, or a peripheral infarct. There are additional smaller areas of pleural nodularity in the lateral right posterior costophrenic sulcus which are also new. Exam is markedly motion degraded. Heart size is enlarged. Cannot assess for pulmonary embolus without IV contrast. There are multiple prominent mediastinal lymph nodes. There is a hiatal hernia with distal mucosal nodular thickening at the GE junction. There is hepatic splenomegaly. The kidneys are atrophic. IMPRESSION: Previously noted patchy and somewhat nodular right lower lobe infiltrate has become more diffuse on the current study. Interval development of pleural based density in the posterior right lower lobe which may represent a "hamptons hump " of infarct. Consider pulmonary embolus. Alternatively finding could represent consolidation or less likely mass given the time of development. No associated pleural effusion. Consider V/Q as the patient has renal insufficiency. Atrophic kidneys. Cardiomegaly. Nodular thickening of the distal esophagus at the GE junction. Consider upper endoscopy.
== END | disposition home or self-care (01) ==
LOC: XRAY 15:52
PROVIDERS: ATTEND Internal Medicine Nephrology
DX: I12.0 Hypertensive chronic kidney disease with stage 5 chronic kidney disease or end stage renal disease (principal); N18.6 End stage renal disease; K44.9 Diaphragmatic hernia without obstruction or gangrene; R16.1 Splenomegaly, not elsewhere classified; I51.7 Cardiomegaly; J18.9 Pneumonia, unspecified organism; J45.909 Unspecified asthma, uncomplicated; K21.9 Gastro-esophageal reflux disease without esophagitis
CPT/HCPCS: 71250

== ENCOUNTER 2018-03-14 09:24 | Outpatient (CLI) | payer MEDICARE ==
--- NOTE | 2018-03-14 10:56 | Cat Scan Report ---
CT CHEST WITHOUT CONTRAST: HISTORY: Lung mass. COMPARISON: 01/09/18. TECHNIQUE: Helical CT in 1.25mm intervals without IV contrast. Sagittal and coronal reformatted images. FINDINGS: Thyroid gland: Normal. Tracheobronchial tree: Normal. Esophagus: Normal. Heart: Normal. Pericardium: Normal. Mediastinum: Normal. Lung Duong: The previously described infiltration throughout the right lower lobe and pleural-based lesion have resolved since 01/09/18. Minimal linear scarring persists in the subpleural right lower lobe. The remainder of the lungs are normal. Pleural Spaces: Normal. Musculoskeletal: Normal. IMPRESSION: Unremarkable CT chest without contrast. Right lower lobe findings seen on the previous CT chest have resolved.
== END 2018-03-14 09:25 | disposition home or self-care (01) ==
LOC: CT 09:24
PROVIDERS: ATTEND Internal Medicine Critical Care Medicine
DX: R91.8 Other nonspecific abnormal finding of lung field (principal); I12.0 Hypertensive chronic kidney disease with stage 5 chronic kidney disease or end stage renal disease; N18.6 End stage renal disease; J45.909 Unspecified asthma, uncomplicated; K21.9 Gastro-esophageal reflux disease without esophagitis
CPT/HCPCS: 71250

== ENCOUNTER 2019-07-05 18:12 | Emergency (ER) | payer MEDICARE ==
--- NOTE | 2019-07-05 18:32 | Event Note ---
ED Screening Note ED Screening Note: lightheaded felt like she was swerving on the road +headache, c/o pounding states she has mild cp no vision changes no n/v no sob PMHx ESRD on dialysis, HIV+, HTN takes labetalol BID, states she took it once today This initial assessment/diagnostic orders/clinical plan/treatment(s) is/are subject to change based on patients health status, clinical progression and re- assessment by fellow clinical providers in the ED. Further treatment and workup at subsequent clinical providers discretion. Patient/guardian urged not to elope from the ED as their condition may be serious if not clinically assessed and managed. Initial orders include: CP protocol
[2019-07-05] MEDS ORDERED: hydrALAZINE 25 MG TAB PO ONE (18:33)
--- NOTE | 2019-07-05 19:22 | XRay Report ---
CHEST 2 VIEWS INDICATION: CP. COMPARISON: 04/01/2018. FINDINGS: Support devices: None. Heart: Stable mild cardiomegaly. Lungs/Pleura: No acute air space or interstitial disease. No significant pleural effusion. IMPRESSION: Stable mild cardiomegaly. Signer Name: Buddy Wright MD Signed: 07/05/2019 7:17 PM Workstation Name: [id number]
[2019-07-05 20:08] LABS: Hematocrit 38.1 % (30.3-42.9); Hemoglobin 12.4 gm/dl (10.1-14.3); Mean Corpuscular HGB Conc 33 % (30-34); Mean Corpuscular Volume 90 fl (79-97); Platelet Count 179 K/mm3 (140-440); Red Blood Count 4.22 M/mm3 (3.65-5.03); Red Cell Distribution Width 14.8 % (13.2-15.2)
[2019-07-05 20:20] LABS: INR 1.04 (0.87-1.13)
[2019-07-05 20:21] LABS: Partial Thromboplastin Time 30.3 Sec. (24.2-36.6)
[2019-07-05 20:24] LABS: Albumin 4.3 g/dL (3.9-5); Calcium 7.6 mg/dL (8.4-10.2)
[2019-07-05 20:52] LABS: Basophils % (Manual) 0 % (0.0-1.8); RBC Morphology Normal; Total Cells Counted 100
[2019-07-06] MEDS ORDERED: IPRATROPIUM/ALBUTEROL SULFATE 3 ML AMPUL.NEB IH ONE (00:05)
--- NOTE | 2019-07-06 00:13 | Emergency Department Report ---
HPI - General Chief Complaint: High BP Time Seen by Provider: 07/05/19 18:28 - HPI HPI: Room 5 The patient is a 48-year-old female presented with a chief complaint of hypertension and dizziness. The patient states earlier in the day she had to 3 minutes of chest discomfort which felt like gas but then resolved. Patient states this evening while driving she began to feel dizzy, hot and as though she was going to pass out. Patient pulled over called 911 and a fire truck assessed the patient to find her hypertensive at 226/140. Patient was advised to come to the hospital for evaluation. The patient states she feels okay now except for slight wheezing. Location: [See above] Duration: [See above] Quality: [See above] Severity: [See above] Timing: [See above] Context: [See above] Modifying factors: [See above] Associated signs and symptoms: [see above] ED Past Medical Hx - Past Medical History Previous Medical History?: Yes Hx Hypertension: Yes Hx GERD: Yes Hx Renal Disease: Yes (dialysis T, T, S) Hx Asthma: Yes Hx HIV: Yes (normal CD4 count May 2019) Additional medical history: anemia, uterine fibroids - Surgical History Past Surgical History?: Yes Additional Surgical History: Bilateral tubal ligation, left chest PermCath, LUE fistula - Family History Family history: no significant - Social History Smoking Status: Never Smoker Substance Use Type: None (denies illicit drug use) - Medications Home Medications: Home Medications Medication Instructions Recorded Confirmed Last Taken Type ALBUTEROL NEB's [Proventil 0.083% 2.5 mg IH TID PRN #30 neb 07/20/14 06/20/17 06/19/17 Rx NEBS] Albuterol INH(or & Nicu Only) 2 puff IH QID PRN #1 can 07/05/16 06/20/17 04/10/17 Rx [ProAir HFA Inhaler] 2 puffs Budesoni/Formotero 160-4.5(Nf) 2 puff IH BID #1 can 07/05/16 06/20/17 08/07/16 Rx [Symbicort 160-4.5 (Nf)] Docusate Sodium [Colace CAP] 100 mg PO BID PRN #60 capsule 08/18/16 06/20/17 04/10/17 Rx 100 mg Abacavir [Ziagen TAB] 2 tab PO DAILY 04/11/17 06/20/17 06/19/17 History Losartan Potassium 100 mg PO DAILY 04/11/17 06/20/17 06/19/17 History 100 mg lamiVUDine [Epivir] 1 tab PO Q48HR 04/11/17 06/20/17 06/19/17 History Darunavir/Cobicistat [Prezcobix 1 each PO DAILY 06/20/17 06/20/17 06/19/17 History 800 mg-150 mg Tablet] Oseltamivir [Tamiflu] 75 mg PO BID 4 Days cap 06/21/17 Unknown Rx Ferric Citrate (Nf) [Auryxia] 210 mg PO 09/02/17 09/01/17 History 840 Sulfamethoxazole/Trimethoprim 2 each PO QHS #60 tablet 09/04/17 Unknown Rx [Bactrim DS TAB] levoFLOXacin [Levaquin TAB] 750 mg PO Q48H #10 tablet 09/04/17 Unknown Rx ALBUTEROL Inhaler(NF) [VENTOLIN 1 puff IH Q4HR PRN #1 inha 04/01/18 Unknown Rx Inhaler(NF)] Benzonatate [Tessalon Perles] 100 mg PO Q8HR PRN #20 capsule 04/01/18 Unknown Rx levoFLOXacin [Levaquin TAB] 750 mg PO ONCE #6 tablet 04/01/18 Unknown Rx predniSONE [Prednisone] 50 mg PO DAILY #5 tablet 04/01/18 Unknown Rx ED Review of Systems ROS: Stated complaint: BLURRY VISION/HBP Other details as noted in HPI Constitutional: no symptoms reported Eyes: denies: eye pain ENT: denies: throat pain Respiratory: shortness of breath Cardiovascular: chest pain Endocrine: no symptoms reported Gastrointestinal: denies: nausea, vomiting Genitourinary: denies: dysuria Musculoskeletal: denies: back pain Neurological: headache Physical Exam - Physical Exam Vital Signs: Vital Signs 07/05/19 07/05/19 07/05/19 18:24 18:26 18:42 Temperature 98.3 F 98.3 F Pulse Rate 85 81 84 Respiratory 18 20 20 Rate Blood Pressure 195/107 171/98 Blood Pressure 195/107 [Right] O2 Sat by Pulse 98 98 98 Oximetry Physical Exam: GENERAL: The patient is well-developed well-nourished female lying on stretcher not appearing to be in acute distress. [] HEENT: Normocephalic. Atraumatic. Extraocular motions are intact. Patient has moist mucous membranes. NECK: Supple. No meningitic signs are noted. Trachea midline CHEST/LUNGS: Faint occasional expiratory wheeze. There is no respiratory distress noted. HEART/CARDIOVASCULAR: Regular. There is no tachycardia. There is no gallop rub or murmur. ABDOMEN: Abdomen is soft, nontender. Patient has normal bowel sounds. There is no abdominal distention. SKIN: There is no rash. There is no edema. There is no diaphoresis. NEURO: The patient is awake, alert, and oriented. The patient is cooperative. The patient has no focal neurologic deficits. The patient has normal speech MUSCULOSKELETAL: There is no evidence of acute injury. ED Course Vital Signs 07/05/19 07/05/19 07/05/19 18:24 18:26 18:42 Temperature 98.3 F 98.3 F Pulse Rate 85 81 84 Respiratory 18 20 20 Rate Blood Pressure 195/107 171/98 Blood Pressure 195/107 [Right] O2 Sat by Pulse 98 98 98 Oximetry ED Medical Decision Making - Lab Data Result diagrams: 07/05/19 19:38 07/05/19 19:38 Laboratory Tests 07/05/19 07/05/19 07/05/19 19:38 19:38 19:38 WBC 2.9 L RBC 4.22 Hgb 12.4 Hct 38.1 MCV 90 MCH 29 MCHC 33 RDW 14.8 Plt Count 179 [place] % (Auto) Photoflash Powder Mixer Add Manual Diff Complete Total Counted 100 Seg Neuts % (Manual) 43.0 Band Neutrophils % 0 Lymphocytes % (Manual) 37.0 H Reactive Lymphs % (Man) 0 Monocytes % (Manual) 17.0 H Eosinophils % (Manual) 3.0 Basophils % (Manual) 0 Metamyelocytes % 0 Myelocytes % 0 Promyelocytes % 0 Blast Cells % 0 Nucleated RBC % Not Reportable Seg Neutrophils # Man 1.2 L Band Neutrophils # 0.0 Lymphocytes # (Manual) 1.1 L Abs React Lymphs (Man) 0.0 Monocytes # (Manual) 0.5 Eosinophils # (Manual) 0.1 Basophils # (Manual) 0.0 Metamyelocytes # 0.0 Myelocytes # 0.0 Promyelocytes # 0.0 Blast Cells # 0.0 WBC Morphology Not Reportable Hypersegmented Neuts Not Reportable Hyposegmented Neuts Not Reportable Hypogranular Neuts Not Reportable Smudge Cells Not Reportable Toxic Granulation Not Reportable Toxic Vacuolation Not Reportable Dohle Bodies Not Reportable Pelger-Huet Anomaly Not Reportable Tiffani Rods Not Reportable Platelet Estimate Not Reportable Clumped Platelets Not Reportable Plt Clumps, EDTA Not Reportable Large Platelets Not Reportable Giant Platelets Not Reportable Platelet Satelliting Not Reportable Plt Morphology Comment Not Reportable RBC Morphology Normal Dimorphic RBCs Not Reportable Polychromasia Not Reportable Hypochromasia Not Reportable Poikilocytosis Not Reportable Anisocytosis Not Reportable Microcytosis Not Reportable Macrocytosis Not Reportable Spherocytes Not Reportable Pappenheimer Bodies Not Reportable Sickle Cells Not Reportable Target Cells Not Reportable Tear Drop Cells Not Reportable Ovalocytes Not Reportable Helmet Cells Not Reportable [place] Bodies Not Reportable [place] Rings Not Reportable Mart Cells Not Reportable Bite Cells Not Reportable Crenated Cell Not Reportable Elliptocytes Not Reportable Acanthocytes (Spur) Not Reportable Rouleaux Not Reportable Hemoglobin C Crystals Not Reportable Schistocytes Not Reportable Malaria parasites Not Reportable Darryn Bodies Not Reportable Hem Pathologist Commnt No PT 13.7 INR 1.04 APTT 30.3 D-Dimer Sodium 144 Potassium 4.6 Chloride 103.5 Carbon Dioxide 22 Anion Gap 23 BUN 47 H Creatinine 10.9 H Estimated GFR 5 BUN/Creatinine Ratio 4 Glucose 80 Calcium 7.6 L Total Bilirubin 0.30 AST 15 ALT 9 Alkaline Phosphatase 172 H Troponin T 0.026 Total Protein 7.4 Albumin 4.3 Albumin/Globulin Ratio 1.4 07/05/19 07/06/19 22:37 00:09 WBC RBC Hgb Hct MCV MCH MCHC RDW Plt Count [place] % (Auto) Add Manual Diff Total Counted Seg Neuts % (Manual) Band Neutrophils % Lymphocytes % (Manual) Reactive Lymphs % (Man) Monocytes % (Manual) Eosinophils % (Manual) Basophils % (Manual) Metamyelocytes % Myelocytes % Promyelocytes % Blast Cells % Nucleated RBC % Seg Neutrophils # Man Band Neutrophils # Lymphocytes # (Manual) Abs React Lymphs (Man) Monocytes # (Manual) Eosinophils # (Manual) Basophils # (Manual) Metamyelocytes # Myelocytes # Promyelocytes # Blast Cells # WBC Morphology Hypersegmented Neuts Hyposegmented Neuts Hypogranular Neuts Smudge Cells Toxic Granulation Toxic Vacuolation Dohle Bodies Pelger-Huet Anomaly Tiffani Rods Platelet Estimate Clumped Platelets Plt Clumps, EDTA Large Platelets Giant Platelets Platelet Satelliting Plt Morphology Comment RBC Morphology Dimorphic RBCs Polychromasia Hypochromasia Poikilocytosis Anisocytosis Microcytosis Macrocytosis Spherocytes Pappenheimer Bodies Sickle Cells Target Cells Tear Drop Cells Ovalocytes Helmet Cells [place] Bodies [place] Rings [place] Cells Bite Cells Crenated Cell Elliptocytes Acanthocytes (Spur) Rouleaux Hemoglobin C Crystals Schistocytes Malaria parasites Darryn Bodies Hem Pathologist Commnt PT INR APTT D-Dimer 203.3 Sodium Potassium Chloride Carbon Dioxide Anion Gap BUN Creatinine Estimated GFR BUN/Creatinine Ratio Glucose Calcium Total Bilirubin AST ALT Alkaline Phosphatase Troponin T 0.019 Total Protein Albumin Albumin/Globulin Ratio - EKG Data -: EKG Interpreted by Oh EKG shows normal: sinus rhythm Rate: normal - EKG Data When compared to previous EKG there are: previous EKG unavailable Interpretation: other (no ischemic changes seen) - Differential Diagnosis vasovagal episode, hypertensive urgency, PE, pneumonia Critical care attestation.: If time is entered above; I have spent that time in minutes in the direct care of this critically ill patient, excluding procedure time. ED Disposition Clinical Impression: Hypertensive urgency, Near syncope Disposition: DC-01 TO HOME OR SELFCARE Is pt being admited?: No Does the pt Need Aspirin: No Condition: Stable Instructions: Hypertensive Crisis (ED) Additional Instructions: Return to the emergency department should you develop worsening symptoms, inability to tolerate food or liquids, high fever or any other concerns Referrals: PRIMARY CARE, [Primary Care Provider] - 3-5 Days Time of Disposition: 00:37
[2019-07-06] MEDS ORDERED: cloNIDine 0.1 MG TAB PO ONE (00:18)
[2019-07-06 01:09] VITALS: BP 164/99
== END 2019-07-06 01:10 | disposition home or self-care (01) ==
LOC: ED 18:12
DX: I16.0 Hypertensive urgency (principal); R55 Syncope and collapse; I10 Essential (primary) hypertension; K21.9 Gastro-esophageal reflux disease without esophagitis; J45.909 Unspecified asthma, uncomplicated; Z79.899 Other long term (current) drug therapy; Z21 Asymptomatic human immunodeficiency virus [HIV] infection status
CPT/HCPCS: 36415; 71046; 80053; 84484; 85007; 85025; 85379; 85610; 85730; 93005; 93010; 94640; 94644

== ENCOUNTER 2020-05-21 14:30 | Observation (INO) | payer MEDICARE ==
[2020-05-21] MEDS ORDERED: SODIUM CHLORIDE 0.9% 500 ML 500 ML IV ONE (14:40)
[2020-05-21] MEDS ORDERED: ACETAMINOPHEN 325 MG TAB ONE (14:41)
[2020-05-21] MEDS ORDERED: ACETAMINOPHEN 325 MG TAB PO ONE (14:41)
[2020-05-21 14:58] LABS: Basophils % (Auto) 0.4 % (0.0-1.8); Eosinophils # (Auto) 0.2 K/mm3 (0.0-0.4); Eosinophils % (Auto) 8.8 % (0.0-4.3); Hematocrit 31.4 % (30.3-42.9); Hemoglobin 10.4 gm/dl (10.1-14.3); Lymphocytes # (Auto) 0.7 K/mm3 (1.2-5.4); Lymphocytes % (Auto) 26.9 % (13.4-35.0); Mean Corpuscular HGB Conc 33 % (30-34); Mean Corpuscular Volume 87 fl (79-97); Monocytes # (Auto) 0.3 K/mm3 (0.0-0.8); Monocytes % (Auto) 11.9 % (0.0-7.3); Platelet Count 156 K/mm3 (140-440); Red Blood Count 3.63 M/mm3 (3.65-5.03); Red Cell Distribution Width 14.1 % (13.2-15.2)
[2020-05-21 15:08] LABS: INR 1.04 (0.87-1.13)
[2020-05-21 15:19] LABS: Albumin 3.8 g/dL (3.9-5); Calcium 8.6 mg/dL (8.4-10.2)
--- NOTE | 2020-05-21 15:33 | XRay Report ---
CHEST 1 VIEW INDICATION: possible Sepsis COMPARISON: 07/05/2019 FINDINGS: SUPPORT DEVICES: None. HEART / MEDIASTINUM: No significant abnormality. LUNGS / PLEURA: Bronchovascular markings are prominent. No pneumothorax. ADDITIONAL FINDINGS: IMPRESSION: 1. Prominent bronchovascular markings, inflammatory process is a concern Signer Name: Andrea Hale MD Signed: 05/21/2020 3:29 PM Workstation Name: [id number]
--- NOTE | 2020-05-22 00:41 | Emergency Department Report ---
ED Shortness of Breath HPI - General Chief Complaint: Dyspnea/Respdistress Stated Complaint: COVID POS/DUNIA/FEVER Time Seen by Provider: 05/22/20 00:24 Source: patient Mode of arrival: Wheelchair Limitations: No Limitations - History of Present Illness Initial Comments: 49-year-old female, history of HIV, ESRD, asthma, hypertension, presents to ED with shortness of breath. Patient reports she tested positive for COVID-19 approximately 1 week ago, which is when her symptoms began. Symptoms consist of loss of smell and taste, congestion, cough, fever, dizziness, and shortness of breath. Patient states she has been using nebulizer treatments at home. Patient was last dialyzed today (TTS schedule). Secretary Board Of Commissioners: Dr Elizabet PASCAL Complaint: shortness of breath -: week(s) (1) Severity: moderate Consistency: intermittent Improves With: rest Worsens With: exertion Known History Of: asthma, HIV, other (ESRD) Context: recent URI Associated Symptoms: chest pain (with cough), fever, cough - Related Data Home Medications Medication Instructions Recorded Confirmed Last Taken Abacavir [Ziagen TAB] 2 tab PO DAILY 04/11/17 06/20/17 06/19/17 Losartan Potassium 100 mg PO DAILY 04/11/17 06/20/17 06/19/17 100 mg lamiVUDine [Epivir] 1 tab PO Q48HR 04/11/17 06/20/17 06/19/17 Darunavir/Cobicistat [Prezcobix 1 each PO DAILY 06/20/17 06/20/17 06/19/17 800 mg-150 mg Tablet] Ferric Citrate (Nf) [Auryxia] 210 mg PO 09/02/17 09/01/17 840 Previous Rx's Medication Instructions Recorded Last Taken Type ALBUTEROL NEB's [Proventil 0.083% 2.5 mg IH TID PRN #30 neb 07/20/14 06/19/17 Rx NEBS] Albuterol Mdi (or & Nicu Only) 2 puff IH QID PRN #1 can 07/05/16 04/10/17 Rx [ProAir HFA Inhaler] 2 puffs Budesoni/Formotero 160-4.5(Nf) 2 puff IH BID #1 can 02/09/17 03/14/17 Rx [Symbicort 160-4.5 (Nf)] Docusate Sodium [Colace CAP] 100 mg PO BID PRN #60 capsule 08/18/16 04/10/17 Rx 100 mg Oseltamivir [Tamiflu] 75 mg PO BID 4 Days cap 06/21/17 Unknown Rx Sulfamethoxazole/Trimethoprim 2 each PO QHS #60 tablet 09/04/17 Unknown Rx [Bactrim DS TAB] levoFLOXacin [Levaquin TAB] 750 mg PO Q48H #10 tablet 09/04/17 Unknown Rx ALBUTEROL Inhaler(NF) [VENTOLIN 1 puff IH Q4HR PRN #1 inha 04/01/18 Unknown Rx Inhaler(NF)] Benzonatate [Tessalon Perles] 100 mg PO Q8HR PRN #20 capsule 04/01/18 Unknown Rx levoFLOXacin [Levaquin TAB] 750 mg PO ONCE #6 tablet 04/01/18 Unknown Rx predniSONE [Prednisone] 50 mg PO DAILY #5 tablet 04/01/18 Unknown Rx Allergies Allergy/AdvReac Type Severity Reaction Status Date / Time No Known Allergies Allergy Verified 02/06/17 15:01 ED Review of Systems ROS: Stated complaint: COVID POS/DUNIA/FEVER Other details as noted in HPI Comment: All other systems reviewed and negative Constitutional: fever ENT: congestion Respiratory: cough, shortness of breath ED Past Medical Hx - Past Medical History Previous Medical History?: Yes Hx Hypertension: Yes Hx Congestive Heart Failure: No Hx Diabetes: Yes Hx GERD: Yes Hx Renal Disease: Yes (dialysis T, T, S) Hx Asthma: Yes Hx COPD: No Hx Tuberculosis: No Hx HIV: Yes (normal CD4 count May 2019) Additional medical history: anemia, uterine fibroids - Surgical History Past Surgical History?: Yes Additional Surgical History: Bilateral tubal ligation, left chest PermCath, LUE fistula - Social History Smoking Status: Never Smoker Substance Use Type: None (denies illicit drug use) - Medications Home Medications: Home Medications Medication Instructions Recorded Confirmed Last Taken Type ALBUTEROL NEB's [Proventil 0.083% 2.5 mg IH TID PRN #30 neb 07/20/14 06/20/17 06/19/17 Rx NEBS] Albuterol Mdi (or & Nicu Only) 2 puff IH QID PRN #1 can 0206/20/17 04/10/17 Rx [ProAir HFA Inhaler] 2 puffs Budesoni/Formotero 160-4.5(Nf) 2 puff IH BID #1 can 07/05/16 06/20/17 08/07/16 Rx [Symbicort 160-4.5 (Nf)] Docusate Sodium [Colace CAP] 100 mg PO BID PRN #60 capsule 08/18/16 06/20/17 04/10/17 Rx 100 mg Abacavir [Ziagen TAB] 2 tab PO DAILY 04/11/17 06/20/17 06/19/17 History Losartan Potassium 100 mg PO DAILY 04/11/17 06/20/17 06/19/17 History 100 mg lamiVUDine [Epivir] 1 tab PO Q48HR 04/11/17 06/20/17 06/19/17 History Darunavir/Cobicistat [Prezcobix 1 each PO DAILY 06/20/17 06/20/17 06/19/17 History 800 mg-150 mg Tablet] Oseltamivir [Tamiflu] 75 mg PO BID 4 Days cap 06/21/17 Unknown Rx Ferric Citrate (Nf) [Auryxia] 210 mg PO 09/02/17 09/01/17 History 840 Sulfamethoxazole/Trimethoprim 2 each PO QHS #60 tablet 09/04/17 Unknown Rx [Bactrim DS TAB] levoFLOXacin [Levaquin TAB] 750 mg PO Q48H #10 tablet 09/04/17 Unknown Rx ALBUTEROL Inhaler(NF) [VENTOLIN 1 puff IH Q4HR PRN #1 inha 04/01/18 Unknown Rx Inhaler(NF)] Benzonatate [Tessalon Perles] 100 mg PO Q8HR PRN #20 capsule 04/01/18 Unknown Rx levoFLOXacin [Levaquin TAB] 750 mg PO ONCE #6 tablet 04/01/18 Unknown Rx predniSONE [Prednisone] 50 mg PO DAILY #5 tablet 04/01/18 Unknown Rx ED Physical Exam - General Limitations: No Limitations General appearance: alert, obese - Head Head exam: Present: atraumatic, normocephalic - Eye Eye exam: Present: normal appearance, EOMI - ENT ENT exam: Present: mucous membranes moist - Neck Neck exam: Present: normal inspection - Respiratory Respiratory exam: Present: rhonchi - Cardiovascular Cardiovascular Exam: Present: normal rhythm, tachycardia - GI/Abdominal GI/Abdominal exam: Present: soft. Absent: distended, tenderness - Extremities Exam Extremities exam: Present: normal inspection - Neurological Exam Neurological exam: Present: alert, oriented X3 - Psychiatric Psychiatric exam: Present: normal affect, normal mood - Skin Skin exam: Present: warm, dry, intact, normal color ED Course Vital Signs 05/21/20 05/21/20 05/22/20 14:39 18:01 01:14 Temperature 102.9 F H 98.9 F Pulse Rate 114 H 104 H 93 H Respiratory 20 22 22 Rate Blood Pressure 157/89 Blood Pressure 173/90 [Right] O2 Sat by Pulse 91 95 96 Oximetry ED Medical Decision Making - Lab Data Result diagrams: 05/21/20 14:44 05/21/20 14:44 - Radiology Data Radiology results: report reviewed, image reviewed - Medical Decision Making 49-year-old female with history of HIV, asthma, ESRD, hypertension, presents to ED with difficulty breathing. Patient was diagnosed with COVID-19 1 week ago. Patient presents today due to increasing shortness of breath. Chest x-ray is abnormal. Patient was ambulated by RN, and found to have desaturation down to 69% on room air. Patient placed on O2 via nasal cannula. Blood cultures drawn. Rocephin and azithromycin given. Patient also given Decadron due to her hypoxia. Patient will be admitted to hospitalist, Dr. Barry, for further management. - Differential Diagnosis COVID-19, pneumonia, PE Critical Care Time: Yes Critical care time in (mins) excluding proc time.: 35 Critical care attestation.: If time is entered above; I have spent that time in minutes in the direct care of this critically ill patient, excluding procedure time. Critical Care Time: 35 min ED Disposition Clinical Impression: COVID-19, Pneumonia, Acute respiratory failure with hypoxia Disposition: OP ADMIT IP TO THIS HOSP Is pt being admited?: Yes Condition: Stable Time of Disposition: 01:34
[2020-05-22] MEDS ORDERED: cefTRIAXone/NS 1 GM/50 ML 1 GM/50 ML BAG IV ONE (01:24)
[2020-05-22] MEDS ORDERED: DEXAMETHASONE 4 MG TAB PO ONE (01:24)
[2020-05-22] MEDS ORDERED: AZITHROMYCIN 250 MG TAB PO ONE (01:24)
--- NOTE | 2020-05-22 02:13 | History and Physical Report ---
History of Present Illness Date of examination: 05/22/20 Date of admission: 05/22/20 Chief complaint: Shortness of breath History of present illness: this is a 49-year-old female that presents to Ed with cheif complaint of shortness of breath-requiring oxygen. Patient has history of HIV, ESRD, asthma, hypertension. Patient reports she tested positive for COVID-19 approximately 1 week ago, which is when her symptoms began. Symptoms consist of loss of smell and taste, congestion, cough, fever, dizziness, and shortness of breath. Patient states she has been using nebulizer treatments at home. Patient was last dialyzed today (TTS schedule). ED work up shows Sodium 139, WBC 2.7, hemoglobin 10.4, potassium 3.8, Glucose 93, PLT 156 Chest x-ray- Prominent bronchovascular markings, inflammatory process is a concern Patient seen at bedside in ED. Discussed with pt Nurse-she said pts 02 sat. is about 87% on ambulation but is 95 to 97% when pt is at rest reviewed lab, mar, and v/s Past History Past Medical History: COPD, ESRD, HIV/AIDS, hypertension Past Surgical History: No surgical history (occational alcohol use) Social history: no significant social history Family history: no significant family history Medications and Allergies Allergies Allergy/AdvReac Type Severity Reaction Status Date / Time No Known Allergies Allergy Verified 02/06/17 15:01 Home Medications Medication Instructions Recorded Confirmed Last Taken Type ALBUTEROL NEB's [Proventil 0.083% 2.5 mg IH TID PRN #30 neb 07/20/14 06/20/17 06/19/17 Rx NEBS] Albuterol Mdi (or & Nicu Only) 2 puff IH QID PRN #1 can 07/05/16 06/20/17 04/10/17 Rx [ProAir HFA Inhaler] 2 puffs Budesoni/Formotero 160-4.5(Nf) 2 puff IH BID #1 can 07/05/16 06/20/17 08/07/16 Rx [Symbicort 160-4.5 (Nf)] Docusate Sodium [Colace CAP] 100 mg PO BID PRN #60 capsule 08/18/16 06/20/17 04/10/17 Rx 100 mg Abacavir [Ziagen TAB] 2 tab PO DAILY 04/11/17 06/20/17 06/19/17 History Losartan Potassium 100 mg PO DAILY 04/11/17 06/20/17 06/19/17 History 100 mg lamiVUDine [Epivir] 1 tab PO Q48HR 04/11/17 06/20/17 06/19/17 History Darunavir/Cobicistat [Prezcobix 1 each PO DAILY 06/20/17 06/20/17 06/19/17 History 800 mg-150 mg Tablet] Oseltamivir [Tamiflu] 75 mg PO BID 4 Days cap 06/21/17 Unknown Rx Ferric Citrate (Nf) [Auryxia] 210 mg PO 09/02/17 09/01/17 History 840 Sulfamethoxazole/Trimethoprim 2 each PO QHS #60 tablet 09/04/17 Unknown Rx [Bactrim DS TAB] levoFLOXacin [Levaquin TAB] 750 mg PO Q48H #10 tablet 09/04/17 Unknown Rx ALBUTEROL Inhaler(NF) [VENTOLIN 1 puff IH Q4HR PRN #1 inha 04/01/18 Unknown Rx Inhaler(NF)] Benzonatate [Tessalon Perles] 100 mg PO Q8HR PRN #20 capsule 04/01/18 Unknown Rx levoFLOXacin [Levaquin TAB] 750 mg PO ONCE #6 tablet 04/01/18 Unknown Rx predniSONE [Prednisone] 50 mg PO DAILY #5 tablet 04/01/18 Unknown Rx Review of Systems Constitutional: fatigue, weakness, malaise, poor appetite Ears, nose, mouth and throat: no epistaxis Breasts: no discharge Cardiovascular: shortness of breath, dyspnea on exertion, high blood pressure, decreased exercise tolerance Respiratory: cough, shortness of breath Gastrointestinal: no abdominal pain, no diarrhea Genitourinary Female: no dyspareunia Menstruation: no post hysterectomy Rectal: no pain Musculoskeletal: muscle weakness, myalgias, no neck stiffness Integumentary: no rash, no pruritis Psychiatric: no disorientation, no hallucinations Hematologic/Lymphatic: no easy bruising Allergic/Immunologic: no urticaria Exam - Constitutional Vitals: Temp Pulse Resp BP Pulse Ox 98.9 F 93 H 22 157/89 96 05/22/20 01:14 05/22/20 01:14 05/22/20 01:14 05/22/20 01:14 05/22/20 01:14 General appearance: Present: mild distress, obese - EENT Eyes: Present: PERRL ENT: hearing intact, clear oral mucosa - Neck Neck: Present: supple, normal ROM - Respiratory Respiratory effort: normal, other (hypoxia) Respiratory: bilateral: CTA - Cardiovascular Heart rate: 93 Heart Sounds: Present: S1 & S2. Absent: rub, click - Extremities Extremities: pulses symmetrical, No edema Peripheral Pulses: within normal limits - Abdominal General gastrointestinal: Present: soft, non-tender, non-distended, normal bowel sounds Female genitourinary: Present: normal - Integumentary Integumentary: Present: clear, warm, dry - Musculoskeletal Musculoskeletal: strength equal bilaterally, generalized weakness - Psychiatric Psychiatric: appropriate mood/affect, intact judgment & insight - Neurologic Neurologic: CNII-XII intact, moves all extremities - Allied Health Allied health notes reviewed: nursing Results - Labs CBC & Chem 7: 05/21/20 14:44 05/21/20 14:44 Labs: Abnormal lab results 05/21/20 05/21/20 05/21/20 Range/Units 14:44 14:44 14:44 WBC 2.7 L (4.5-11.0) K/mm3 RBC 3.63 L (3.65-5.03) M/mm3 [place] % (Auto) 11.9 H (0.0-7.3) % Eos % (Auto) 8.8 H (0.0-4.3) % Lymph # (Auto) 0.7 L (1.2-5.4) K/mm3 Seg Neutrophils # 1.4 L (1.8-7.7) K/mm3 VBG pH 7.446 H (7.320-7.420) Chloride 94.8 L (98-107) mmol/L Carbon Dioxide 34 H (22-30) mmol/L Creatinine 7.8 H (0.6-1.2) mg/dL Albumin 3.8 L (3.9-5) g/dL Assessment and Plan - Patient Problems (1) COVID-19 Current Visit: Yes Status: Acute Plan to address problem: Airborne and contact isolation monitor inflammatory [id number], LDH, CRP and ferritin dexametazon daily Consult ID-f/u with recommendation Encourage proning and ambulation Encourafge use of IS while awake Ascorbic acid and zinc sulphate-check vitamin D level and Hga1c (2) Pneumonia Current Visit: Yes Status: Acute Plan to address problem: Continue empric abx repiratory care-ABG and oxygen supplement blood culture Chest [id number]- Prominent bronchovascular markings, inflammatory process is a concern (3) Acute respiratory failure with hypoxia Current Visit: Yes Status: Acute Plan to address problem: 2/2 to covid respiratory virus infection Oxygen supplement and bronchodilator PRN ABGs-will need home 02 evaluation at discharge (4) ESRD (end stage renal disease) Current Visit: Yes Status: Acute Plan to address problem: ESRD requiring dialysis-last HD 05/21/20 Resume HD per renal machine operator hop worker consult (5) Hypertension Current Visit: Yes Status: Acute Plan to address problem: Monitor blood pressure resume home antihypertensive adjust prn (6) HIV (human immunodeficiency virus infection) Current Visit: Yes Status: Acute Plan to address problem: Resume home Antiviral (7) Morbid (severe) obesity due to excess calories Current Visit: Yes Status: Acute Plan to address problem: Discussed lifestyle modification Healthy diet and weight management (8) DVT prophylaxis Current Visit: Yes Status: Acute Plan to address problem: SQH (9) Advance care planning Current Visit: Yes Status: Acute Plan to address problem: Full code
[2020-05-22] MEDS ORDERED: hydrALAZINE 20 MG/1 ML INJ IV PRN (02:25)
[2020-05-22] MEDS ORDERED: ALBUTEROL 2.5 MG/3 ML NEBU IH PRN (02:40)
[2020-05-22] MEDS ORDERED: traZODone 50 MG TAB PO PRN (02:40)
[2020-05-22] MEDS ORDERED: traMADol 50 MG TAB PO PRN (02:40)
[2020-05-22 02:46] LABS: C-Reactive Protein 3.5 mg/dL (0.00-1.30)
[2020-05-22] MEDS ORDERED: SODIUM CHLORIDE 0.9% 500 ML 500 ML ONE (02:53)
[2020-05-22] MEDS: ONDANSETRON 4 MG/2 ML INJ IV PRN ×2 (04:00→12:17)
[2020-05-22] MEDS: PANTOPRAZOLE 40 MG INJ IV SCH (09:31)
[2020-05-22] MEDS ORDERED: cefTRIAXone/NS 1 GM/50 ML 1 GM/50 ML BAG IV SCH (10:00)
[2020-05-22] MEDS: AZITHROMYCIN 500 MG in SODIUM CHLORIDE 0.9% 250ML 250 ML IV SCH (10:16)
[2020-05-22] MEDS ORDERED: guaiFENesin 200 MG TAB PO PRN (11:30)
--- NOTE | 2020-05-22 11:31 | Event Note ---
Date: 05/22/20 49-year-old female with history of ESRD, HIV, asthma who presented to the hospital with chief complaint of shortness of breath. Patient tested positive for Covid about a week prior to presentation. Her symptoms started getting worse with increasing shortness of breath so he decided to come to the hospital. Patient reportedly found to have hypoxia-69% on room air in the ED. Her chest x-ray showed bilateral infiltrates. She was started on IV steroids and admitted to the hospital. COVID-19 test pending. ID has been consulted. Patient states that she uses albuterol and Symbicort at home for hospital. Plan Continue oxygen supplementation Pulmonology evaluation ID evaluation Bronchodilators and steroids Rest of plan as documented in H&P below.
--- NOTE | 2020-05-22 11:50 | Consultation ---
History of Present Illness - Reason for Consult Consult date: 05/22/20 COVID, HIV, ESRD Requesting physician: ROGELIO HERNANDEZ - History of Present Illness 49 years old female with history of morbid obesity, asthma, end-stage renal disease on hemodialysis Saturday, and Saturday, HIV infection follows with Dr. De La Cruz, currently on Tivicay, Prezcobix and lamivudine, viral load undetectable per patient report, admitted on 05/21/2020 secondary to a week hi story of generalized malaise, body aches, loss of taste and smell, cough, chest congestion, fever of 103.9 at home, and shortness of breath. She also reports nausea and poor appetite. She has not been to be able to take her HIV meds during the last week. She was exposed to a niece who tested later positive for COVID-19 during the right. Patient was tested for Covid 19 a week ago and was positive. On arrival, temperature 102.9, HR 114, RR 20, O2 sat 91%, BP 173/90. Initial WBC 2.7. Hemoglobin 10.4. D-dimer 648. Ferritin 1695. CRP 3.5. LDH 459. Chest x-ray with bilateral prominent bronchovascular markings. In the ED, O2 sat dropped to 87% patient is on nasal cannula oxygen 5 L. Review of Systems: positive in bold print General: fever, chills, malaise Cutaneous: rash, pruritus Head: headaches or injury Eyes: changes in vision, eye pain, double vision Ears: ear pain, ear discharge, ringing or hearing loss Nose: nose bleeding, stuffiness Mouth & throat: bleeding gums, horseness, no dental problems, or swollen glands Neck: no pain, node enlargement/lumps, tyroid enlargement or tenderness Respiratory: SOB, cough, RENEE, wheezing, sputum, hemoptysis, pleuritic chest pain Cardiovascular: chest pain, leg edema, cyanosis, RENEE, orthopnea Musculoskeletal: edema, deformities, pain Gastrointestinal: nausea, vomiting, hematemesis, diarrhea, constipation, melena, bright red blood in stools, fecal incontinence, jaundice Genitourinary/Reproductive: frequent urination, dysuria, hematuria, incontinence Neurogical: seizures, headaches, weakness, paresthesias, loss of speech or vision; memory loss, vertigo, tremors, numbness Psychiatric: stable mood; excessive anxiety, sadness or moodiness Past History Past Medical History: COPD, ESRD, HIV/AIDS, hypertension Past Surgical History: No surgical history (occational alcohol use) Social history: no significant social history Family history: no significant family history Medications and Allergies Allergies Allergy/AdvReac Type Severity Reaction Status Date / Time No Known Allergies Allergy Verified 02/06/17 15:01 Home Medications Medication Instructions Recorded Confirmed Last Taken Type ALBUTEROL NEB's [Proventil 0.083% 2.5 mg IH TID PRN #30 neb 07/20/14 06/20/17 06/19/17 Rx NEBS] Albuterol Mdi (or & Nicu Only) 2 puff IH QID PRN #1 can 07/05/16 06/20/17 04/10/17 Rx [ProAir HFA Inhaler] 2 puffs Budesoni/Formotero 160-4.5(Nf) 2 puff IH BID #1 can 07/05/16 06/20/17 08/07/16 Rx [Symbicort 160-4.5 (Nf)] Docusate Sodium [Colace CAP] 100 mg PO BID PRN #60 capsule 08/18/16 06/20/17 04/10/17 Rx 100 mg Abacavir [Ziagen TAB] 2 tab PO DAILY 04/11/17 06/20/17 06/19/17 History Losartan Potassium 100 mg PO DAILY 04/11/17 06/20/17 06/19/17 History 100 mg lamiVUDine [Epivir] 1 tab PO Q48HR 04/11/17 06/20/17 06/19/17 History Darunavir/Cobicistat [Prezcobix 1 each PO DAILY 06/20/17 06/20/17 06/19/17 History 800 mg-150 mg Tablet] Oseltamivir [Tamiflu] 75 mg PO BID 4 Days cap 06/21/17 Unknown Rx Ferric Citrate (Nf) [Auryxia] 210 mg PO 09/02/17 09/01/17 History 840 Sulfamethoxazole/Trimethoprim 2 each PO QHS #60 tablet 09/04/17 Unknown Rx [Bactrim DS TAB] levoFLOXacin [Levaquin TAB] 750 mg PO Q48H #10 tablet 09/04/17 Unknown Rx ALBUTEROL Inhaler(NF) [VENTOLIN 1 puff IH Q4HR PRN #1 inha 04/01/18 Unknown Rx Inhaler(NF)] Benzonatate [Tessalon Perles] 100 mg PO Q8HR PRN #20 capsule 04/01/18 Unknown Rx levoFLOXacin [Levaquin TAB] 750 mg PO ONCE #6 tablet 04/01/18 Unknown Rx predniSONE [Prednisone] 50 mg PO DAILY #5 tablet 04/01/18 Unknown Rx Active Meds: Active Medications Albuterol (Albuterol 2.5 Mg/3 Ml Nebu) 2.5 mg IH Q4HRT PRN PRN Reason: Shortness Of Breath Arformoterol Tartrate (Arformoterol 15 Mcg/2 Ml Nebu) 15 mcg IH Q12HRT [facility] Benzonatate (Benzonatate 100 Mg Cap) 100 mg PO Q8HR Y[facility] Budesonide (Budesonide 0.5 Mg/2 Ml Nebu) 0.5 mg IH Q12HRT [facility] Guaifenesin (Guaifenesin 200 Mg Tab) 200 mg PO Q6H PRN PRN Reason: Cough Hydralazine HCl (Hydralazine 20 Mg/1 Ml Inj) 5 mg IV Q4H PRN PRN Reason: Hypertension Azithromycin 500 mg/ Sodium (Chloride) 250 mls @ 250 mls/hr IV Q24HR [facility]; Protocol Last Admin: 05/22/20 10:16 Dose: 250 mls/hr Documented by: Ceftriaxone Sodium (Rocephin/Ns 1 Gm/50 Ml) 1 gm in 50 mls @ 100 mls/hr IV Q24HR [facility]; Protocol Last Infusion: 05/22/20 10:00 Dose: Infused Documented by: Ondansetron HCl (Ondansetron 4 Mg/2 Ml Inj) 4 mg IV Q4H PRN PRN Reason: Nausea And Vomiting Last Admin: 05/22/20 04:00 Dose: 4 mg Documented by: Pantoprazole Sodium (Pantoprazole 40 Mg Inj) 40 mg IV QDAY [facility] Last Admin: 05/22/20 09:31 Dose: 40 mg Documented by: Tramadol HCl (Tramadol 50 Mg Tab) 50 mg PO Q4H PRN PRN Reason: Pain, Moderate (4-6) Trazodone HCl (Trazodone 50 Mg Tab) 50 mg PO QHS PRN PRN Reason: Insomnia Physical Examination - Physical Exam Narrative exam: General appearance: Alert in NAD obese on nasal cannula oxygen Eyes: anicteric sclerae, moist conjunctivae; no lid-lag; PERRLA HENT: Normocephalic, Atraumatic; normal external ears, nares open, oropharynx cl ear Neck: supple, tracheal midline, no JVD Lungs: Bibasilar crackles CV: RRR no murmur Abdomen: Soft, non-tender, obese Extremities: no edema, no cyanosis Skin: No rash. Psych: no agitated Neuro: alert and oriented x 3. Moving all extermities - Constitutional Vitals: Vital Signs Temp Pulse Resp BP Pulse Ox 98.9 F 93 H 20 143/89 97 05/22/20 01:14 05/22/20 01:14 05/22/20 03:16 05/22/20 10:00 05/22/20 10:00 Temperature -Last 24 Hours Temperature 98.9 F Temperature 102.9 F Results - Labs CBC & Chem 7: 05/21/20 14:44 05/21/20 14:44 Labs: Abnormal lab results 05/21/20 05/21/20 05/21/20 Range/Units 14:44 14:44 14:44 WBC 2.7 L (4.5-11.0) K/mm3 RBC 3.63 L (3.65-5.03) M/mm3 [place] % (Auto) 11.9 H (0.0-7.3) % Eos % (Auto) 8.8 H (0.0-4.3) % Lymph # (Auto) 0.7 L (1.2-5.4) K/mm3 Seg Neutrophils # 1.4 L (1.8-7.7) K/mm3 D-Dimer (0-234) ng/mlDDU VBG pH 7.446 H (7.320-7.420) Chloride 94.8 L (98-107) mmol/L Carbon Dioxide 34 H (22-30) mmol/L Creatinine 7.8 H (0.6-1.2) mg/dL Ferritin (10.0-200.0) ng/mL Lactate Dehydrogenase (91-180) units/L C-Reactive Protein (0.00-1.30) mg/dL Albumin 3.8 L (3.9-5) g/dL 05/22/20 05/22/20 05/22/20 Range/Units 01:44 01:44 01:44 WBC (4.5-11.0) K/mm3 RBC (3.65-5.03) M/mm3 [place] % (Auto) (0.0-7.3) % Eos % (Auto) (0.0-4.3) % Lymph # (Auto) (1.2-5.4) K/mm3 Seg Neutrophils # (1.8-7.7) K/mm3 D-Dimer 648.89 H (0-234) ng/mlDDU VBG pH (7.320-7.420) Chloride (98-107) mmol/L Carbon Dioxide (22-30) mmol/L Creatinine (0.6-1.2) mg/dL Ferritin 1695.0 H (10.0-200.0) ng/mL Lactate Dehydrogenase 459 H (91-180) units/L C-Reactive Protein 3.50 H (0.00-1.30) mg/dL Albumin (3.9-5) g/dL Assessment and Plan Cultures: Blood culture 05/21/2020 no growth today Assessment: 49 years old female with history of morbid obesity, asthma, ESRD on hemodialysis Saturday, and Saturday, HIV infection follows with Dr. De La Cruz, currently on Tivicay, Prezcobix and lamivudine, viral load undetectable per patient report, admitted on 05/21/2020 secondary to a week history of generalized malaise, body aches, loss of taste and smell, cough, chest congestion, fever of 103.9 at home, and shortness of breath: #Severe sepsis: Present on admission with high fever, tachycardia, hypoxia; likely secondary to COVID-19 infection. #Severe COVID-19 pneumonia: Chest x-ray with bilateral prominent bronchovascular markings. Inflammatory markers elevated. D-dimer 648. #Acute hypoxemic respiratory failure: Initial O2 sat dropped to 87%, patient is on 5 L nasal cannula oxygen. #ESRD: On hemodialysis Saturday, and Saturdays #HIV infection: Undetectable viral load per patient report. Patient follows with Dr. De La Cruz, last time seen 2 months ago. She takes Tivicay, Prezcobix and lamivudine #Morbid obesity: Associated with worse outcomes. #Neutropenia: Likely secondary to COVID-19. Recommendations: Start dexamethasone 6 mg IV/PO BID for 5 days then 6 mg qday for 5 days total 10 days Patient is not a candidate for remdesivir secondary to renal failure Monitor inflammatory markers - ferritin, Ddimer, CRP, LDH Continue ceftriaxone and azithromycin, procalcitonin >0.25 ng/mL, however likely due to renal failure, follow-up blood cultures, may stop later Continue anticoagulation per System Protocol Prone positioning as possible Continue ART -allow patient's home medications lamivudine 75 mg p.o. once a day, Tivicay 50 mg p.o. once a day and prezcovix 1 tablet p.o. once a day Consider pulmonary consultation if hypoxia worsens All laboratory, cultures and imaging were reviewed. Will follow Heather Finney MD Infectious Diseases [employer] [facility] M [phone] O [phone]
--- NOTE | 2020-05-22 13:16 | Consultation ---
History of Present Illness - Reason for Consult Consult date: 05/22/20 end stage renal disease - History of Present Illness is a 46-year old AAF who is well known to our service with medical history significant for Morbid obesity, Hypertension, Anemia, HIV, Secondary hyperparathyroidism and ESRD on hemodialysis (TTS) who presented to [facility] ED 05/21 with one week history of generalized malaise, body aches, loss of taste & smell, cough, chest congestion, fever of 103.9 at home and shortness of breath. The symptoms are worse for the past 1-2 days prompted to come to the ED. She a lso reports nausea and decreased appetite. History positive for contact with family member who tested positive for COVID-19. Patient was also tested positive for COVID-19 few days ago. On arrival, temperature 102.9, HR 114, RR 20, O2 sat 91%, BP 173/90. Chest x-ray showed bilateral prominent bro nchovascular markings. In the ED, O2 sat dropped to 87% and she was placed on NC O2 5 L. Patient was last dialyzed on 05/21. Nephrology was consulted for ESRD management. Past History Past Medical History: COPD, ESRD, HIV/AIDS, hypertension Past Surgical History: No surgical history (occational alcohol use) Social history: no significant social history Family history: no significant family history Medications and Allergies Allergies Allergy/AdvReac Type Severity Reaction Status Date / Time No Known Allergies Allergy Verified 02/06/17 15:01 Home Medications Medication Instructions Recorded Confirmed Last Taken Type ALBUTEROL NEB's [Proventil 0.083% 2.5 mg IH TID PRN #30 neb 07/20/14 06/20/17 06/19/17 Rx NEBS] Albuterol Mdi (or & Nicu Only) 2 puff IH QID PRN #1 can 07/05/16 06/20/17 04/10/17 Rx [ProAir HFA Inhaler] 2 puffs Budesoni/Formotero 160-4.5(Nf) 2 puff IH BID #1 can 07/05/16 06/20/17 08/07/16 Rx [Symbicort 160-4.5 (Nf)] Docusate Sodium [Colace CAP] 100 mg PO BID PRN #60 capsule 08/18/16 06/20/17 04/10/17 Rx 100 mg Abacavir [Ziagen TAB] 2 tab PO DAILY 04/11/17 06/20/17 06/19/17 History Losartan Potassium 100 mg PO DAILY 04/11/17 06/20/17 06/19/17 History 100 mg lamiVUDine [Epivir] 1 tab PO Q48HR 04/11/17 06/20/17 06/19/17 History Darunavir/Cobicistat [Prezcobix 1 each PO DAILY 06/20/17 06/20/17 06/19/17 History 800 mg-150 mg Tablet] Oseltamivir [Tamiflu] 75 mg PO BID 4 Days cap 06/21/17 Unknown Rx Ferric Citrate (Nf) [Auryxia] 210 mg PO 09/02/17 09/01/17 History 840 Sulfamethoxazole/Trimethoprim 2 each PO QHS #60 tablet 09/04/17 Unknown Rx [Bactrim DS TAB] levoFLOXacin [Levaquin TAB] 750 mg PO Q48H #10 tablet 09/04/17 Unknown Rx ALBUTEROL Inhaler(NF) [VENTOLIN 1 puff IH Q4HR PRN #1 inha 04/01/18 Unknown Rx Inhaler(NF)] Benzonatate [Tessalon Perles] 100 mg PO Q8HR PRN #20 capsule 04/01/18 Unknown Rx levoFLOXacin [Levaquin TAB] 750 mg PO ONCE #6 tablet 04/01/18 Unknown Rx predniSONE [Prednisone] 50 mg PO DAILY #5 tablet 04/01/18 Unknown Rx Active Meds: Active Medications Albuterol (Albuterol 2.5 Mg/3 Ml Nebu) 2.5 mg IH Q4HRT PRN PRN Reason: Shortness Of Breath Arformoterol Tartrate (Arformoterol 15 Mcg/2 Ml Nebu) 15 mcg IH Q12HRT [facility] Benzonatate (Benzonatate 100 Mg Cap) 100 mg PO Q8HR YARELI Budesonide (Budesonide 0.5 Mg/2 Ml Nebu) 0.5 mg IH Q12HRT [facility] Dexamethasone (Dexamethasone 4 Mg/Ml Vial) 6 mg IV Q12HR [facility] Stop: 05/27/20 12:59 Guaifenesin (Guaifenesin 200 Mg Tab) 200 mg PO Q6H PRN PRN Reason: Cough Hydralazine HCl (Hydralazine 20 Mg/1 Ml Inj) 5 mg IV Q4H PRN PRN Reason: Hypertension Azithromycin 500 mg/ Sodium (Chloride) 250 mls @ 250 mls/hr IV Q24HR [facility]; Protocol Last Admin: 05/22/20 10:16 Dose: 250 mls/hr Documented by: Ceftriaxone Sodium (Rocephin/Ns 1 Gm/50 Ml) 1 gm in 50 mls @ 100 mls/hr IV Q24H R [facility]; Protocol Last Infusion: 05/22/20 10:00 Dose: Infused Documented by: Ondansetron HCl (Ondansetron 4 Mg/2 Ml Inj) 4 mg IV Q4H PRN PRN Reason: Nausea And Vomiting Last Admin: 05/22/20 12:17 Dose: 4 mg Documented by: Pantoprazole Sodium (Pantoprazole 40 Mg Inj) 40 mg IV QDAY [facility] Last Admin: 05/22/20 09:31 Dose: 40 mg Documented by: Tramadol HCl (Tramadol 50 Mg Tab) 50 mg PO Q4H PRN PRN Reason: Pain, Moderate (4-6) Trazodone HCl (Trazodone 50 Mg Tab) 50 mg PO QHS PRN PRN Reason: Insomnia Review of Systems Constitutional: fever, chills, anorexia, fatigue, weakness, poor appetite, no weight loss, no weight gain Breasts: deferred Cardiovascular: shortness of breath, dyspnea on exertion, high blood pressure, no chest pain, no orthopnea, no edema, no syncope, no lightheadedness, no leg edema Respiratory: cough, shortness of breath, dyspnea on exertion, no hemoptysis, no wheezing Gastrointestinal: nausea, no abdominal pain, no vomiting, no diarrhea, no melena, no hematochezia Genitourinary Female: no dysuria Rectal: no bleeding Integumentary: no rash, no wounds, no jaundice Neurological: no convulsions, no aphasia, no change in speech, no change in mentation, no confusion Exam - Vital Signs Vital signs: Vital Signs Temp Pulse Resp BP Pulse Ox 102.9 F H 114 H 20 173/90 91 05/21/20 14:39 05/21/20 14:39 05/21/20 14:39 05/21/20 14:39 05/21/20 14:39 Results - Lab Results 05/21/20 14:44 05/21/20 14:44 Most recent lab results Calcium 8.6 mg/dL (8.4-10.2) 05/21/20 14:44 Assessment and Plan 1. ESRD: Patient with known h/o ESRD on maintenance hemodialysis, TTS schedule. Last outpatient hemodialysis was on 05/21. Hemodialysis: 2. FEN: UF with HD as tolerated. Monitor lytes and volume status. 3. Severe sepsis, POA: Secondary to COVID-19 infection. Ceftriaxone and Azithromycin. Followed by ID. 4. Severe COVID-19 pneumonia: Dexamethasone 6 mg IV/PO BID for 5 days then 6 mg qday for 5 days total 10 days. Patient is not a candidate for remdesivir secondary to ESRD. Monitor inflammatory markers - ferritin, Ddimer, CRP, LDH. 5. Acute hypoxemic respiratory failure: Secondary to COVID-19 PNA. Supplemental O2. 6. HIV infection: Resume home meds. 7. Anemia, POA: 2/2 ESRD. Epogen. 8. HTN: BP is controlled. Continue home meds. 9. Morbid obesity 2/2 excess calories. Subjective: Patient was seen and examined at the bedside. Examination: General appearance: well-developed, well-nourished, appears stated age, obese, NC O2 HEENT: ATNC, PERRL, hearing intact, vision intact Neck: supple Respiratory: bibasal rales noted Heart: regular, S1S2, no murmur Abdomen: obese, soft, BS heard, NT Integumentary: no rash, warm and dry Neurologic: no focal deficit, no asterixis, alert and oriented x3 Ext: trace LE edema noted Hemodialysis access: Left arm AVF Psychiatric: mood/affect appropriate, cooperative
--- NOTE | 2020-05-22 14:09 | Consultation ---
History of Present Illness Consult date: 05/22/20 Requesting physician: JADIEL ZAMUDIO Reason for consult: other (COVID-19 infection; Acute Hypoxemic Respiratory Failure) History of present illness: PCCM Consult Note (Full dictation # [id number]) Please see dictated notes for full details Past History Past Medical History: COPD, ESRD, HIV/AIDS, hypertension Past Surgical History: No surgical history (occational alcohol use) Social history: no significant social history Family history: no significant family history Medications and Allergies Allergies Allergy/AdvReac Type Severity Reaction Status Date / Time No Known Allergies Allergy Verified 02/06/17 15:01 Home Medications Medication Instructions Recorded Confirmed Last Taken Type ALBUTEROL NEB's [Proventil 0.083% 2.5 mg IH TID PRN #30 neb 07/20/14 06/20/17 06/19/17 Rx NEBS] Albuterol Mdi (or & Nicu Only) 2 puff IH QID PRN #1 can 07/05/16 06/20/17 04/10/17 Rx [ProAir HFA Inhaler] 2 puffs Budesoni/Formotero 160-4.5(Nf) 2 puff IH BID #1 can 07/05/16 06/20/17 08/07/16 Rx [Symbicort 160-4.5 (Nf)] Docusate Sodium [Colace CAP] 100 mg PO BID PRN #60 capsule 08/18/16 06/20/17 04/10/17 Rx 100 mg Abacavir [Ziagen TAB] 2 tab PO DAILY 04/11/17 06/20/17 06/19/17 History Losartan Potassium 100 mg PO DAILY 04/11/17 06/20/17 06/19/17 History 100 mg lamiVUDine [Epivir] 1 tab PO Q48HR 04/11/17 06/20/17 06/19/17 History Darunavir/Cobicistat [Prezcobix 1 each PO DAILY 06/20/17 06/20/17 06/19/17 History 800 mg-150 mg Tablet] Ferric Citrate (Nf) [Auryxia] 210 mg PO 09/02/17 09/01/17 History 840 ALBUTEROL Inhaler(NF) [VENTOLIN 1 puff IH Q4HR PRN #1 inha 04/01/18 Unknown Rx Inhaler(NF)] Azithromycin [Zithromax Z-SANTIAGO] 250 mg PO DAILY #3 tablet 05/23/20 Unknown Rx Cefpodoxime Proxetil 200 mg PO Q48HR 7 Days tablet 05/23/20 Unknown Rx dexAMETHasone [Dexamethasone] 6 mg PO TITRATE #13 tablet 05/23/20 Unknown Rx Active Meds: Active Medications Albuterol (Albuterol 2.5 Mg/3 Ml Nebu) 2.5 mg IH Q4HRT PRN PRN Reason: Shortness Of Breath Arformoterol Tartrate (Arformoterol 15 Mcg/2 Ml Nebu) 15 mcg IH Q12HRT [facility] Benzonatate (Benzonatate 100 Mg Cap) 100 mg PO Q8HR YARELI Budesonide (Budesonide 0.5 Mg/2 Ml Nebu) 0.5 mg IH Q12HRT YARELI Dexamethasone (Dexamethasone 4 Mg/Ml Vial) 6 mg IV Q12HR [facility] Stop: 05/27/20 12:59 Guaifenesin (Guaifenesin 200 Mg Tab) 200 mg PO Q6H PRN PRN Reason: Cough Hydralazine HCl (Hydralazine 20 Mg/1 Ml Inj) 5 mg IV Q4H PRN PRN Reason: Hypertension Azithromycin 500 mg/ Sodium (Chloride) 250 mls @ 250 mls/hr IV Q24HR [facility]; Protocol Last Admin: 05/22/20 10:16 Dose: 250 mls/hr Documented by: Ceftriaxone Sodium (Rocephin/Ns 1 Gm/50 Ml) 1 gm in 50 mls @ 100 mls/hr IV Q24HR [facility]; Protocol Last Infusion: 05/22/20 10:00 Dose: Infused Documented by: Ondansetron HCl (Ondansetron 4 Mg/2 Ml Inj) 4 mg IV Q4H PRN PRN Reason: Nausea And Vomiting Last Admin: 05/22/20 12:17 Dose: 4 mg Documented by: Pantoprazole Sodium (Pantoprazole 40 Mg Inj) 40 mg IV QDAY [facility] Last Admin: 05/22/20 09:31 Dose: 40 mg Documented by: Tramadol HCl (Tramadol 50 Mg Tab) 50 mg PO Q4H PRN PRN Reason: Pain, Moderate (4-6) Trazodone HCl (Trazodone 50 Mg Tab) 50 mg PO QHS PRN PRN Reason: Insomnia Physical Examination Vital signs: Vital Signs Temp Pulse Resp BP Pulse Ox 102.9 F H 114 H 20 173/90 91 05/21/20 14:39 05/21/20 14:39 05/21/20 14:39 05/21/20 14:39 05/21/20 14:39 Results - Laboratory Findings CBC and BMP: 05/21/20 14:44 05/23/20 08:57 PT/INR, D-dimer PT 13.5 Sec. (12.2-14.9) 05/21/20 14:44 INR 1.04 (0.87-1.13) 05/21/20 14:44 D-Dimer 648.89 ng/mlDDU (0-234) H 05/22/20 01:44 Abnormal lab findings: Abnormal Labs 05/21/20 05/21/20 05/21/20 14:44 14:44 14:44 WBC 2.7 L RBC 3.63 L Lipscomb % (Auto) 11.9 H Eos % (Auto) 8.8 H Lymph # (Auto) 0.7 L Seg Neutrophils # 1.4 L D-Dimer VBG pH 7.446 H Chloride 94.8 L Carbon Dioxide 34 H Creatinine 7.8 H Ferritin Lactate Dehydrogenase C-Reactive Protein Albumin 3.8 L Coronavirus (PCR) 05/22/20 05/22/20 05/22/20 01:44 01:44 01:44 WBC RBC Lipscomb % (Auto) Eos % (Auto) Lymph # (Auto) Seg Neutrophils # D-Dimer 648.89 H VBG pH Chloride Carbon Dioxide Creatinine Ferritin 1695.0 H Lactate Dehydrogenase 459 H C-Reactive Protein 3.50 H Albumin Coronavirus (PCR) 05/22/20 10:13 WBC RBC Lipscomb % (Auto) Eos % (Auto) Lymph # (Auto) Seg Neutrophils # D-Dimer VBG pH Chloride Carbon Dioxide Creatinine Ferritin Lactate Dehydrogenase C-Reactive Protein Albumin Coronavirus (PCR) Positive A
[2020-05-22] MEDS: dexAMETHasone 4 MG/ML VIAL IV SCH ×2 (14:22→21:38)
[2020-05-22] MEDS: BENZONATATE 100 MG CAP PO SCH ×2 (14:22→21:38)
[2020-05-22] MEDS: BUDESONIDE 0.5 MG/2 ML NEBU IH SCH (21:01)
[2020-05-22] MEDS: ARFORMOTEROL 15 MCG/2 ML NEBU IH SCH (21:01)
[2020-05-23] MEDS: BENZONATATE 100 MG CAP PO SCH ×2 (05:29→17:26)
[2020-05-23] MEDS: ARFORMOTEROL 15 MCG/2 ML NEBU IH SCH (08:26)
[2020-05-23] MEDS: BUDESONIDE 0.5 MG/2 ML NEBU IH SCH (08:27)
[2020-05-23] MEDS ORDERED: SODIUM CHLORIDE 0.9% 100 ML IV PRN (09:00)
[2020-05-23] MEDS ORDERED: HEPARIN 10,000 UNITS/10 ML VIAL IV PRN (09:00)
[2020-05-23] MEDS: AZITHROMYCIN 500 MG in SODIUM CHLORIDE 0.9% 250ML 250 ML IV SCH (09:33)
[2020-05-23] MEDS: PANTOPRAZOLE 40 MG INJ IV SCH (09:33)
[2020-05-23] MEDS: dexAMETHasone 4 MG/ML VIAL IV SCH (09:33)
[2020-05-23 09:48] LABS: Calcium 7.4 mg/dL (8.4-10.2)
[2020-05-23] MEDS ORDERED: cefTRIAXone/NS 2 GM/100 ML 2 GM/100 ML BAG IV SCH (12:00)
--- NOTE | 2020-05-23 13:49 | Progress Note ---
Assessment and Plan - Patient Problems (1) Acute respiratory failure with hypoxia Current Visit: Yes Status: Acute (2) COVID-19 Current Visit: Yes Status: Acute (3) ESRD (end stage renal disease) Current Visit: Yes Status: Acute (4) HIV (human immunodeficiency virus infection) Current Visit: Yes Status: Acute (5) Hypertension Current Visit: Yes Status: Acute (6) Morbid (severe) obesity due to excess calories Current Visit: Yes Status: Acute (7) Pneumonia Current Visit: Yes Status: Acute Subjective Date of service: 05/23/20 Objective Vital Signs - 12hr 05/23/20 05/23/20 06:19 11:50 Temperature 98.0 F 98.1 F Pulse Rate 90 89 Respiratory 20 16 Rate Blood Pressure 147/94 148/87 O2 Sat by Pulse 95 97 Oximetry CBC and BMP: 05/21/20 14:44 05/23/20 08:57 ABG, PT/INR, D-dimer: PT/INR, D-dimer PT 13.5 Sec. (12.2-14.9) 05/21/20 14:44 INR 1.04 (0.87-1.13) 05/21/20 14:44 D-Dimer 648.89 ng/mlDDU (0-234) H 05/22/20 01:44 Abnormal lab findings: Abnormal Labs 05/21/20 05/21/20 05/21/20 14:44 14:44 14:44 WBC 2.7 L RBC 3.63 L Hood % (Auto) 11.9 H Eos % (Auto) 8.8 H Lymph # (Auto) 0.7 L Seg Neutrophils # 1.4 L D-Dimer VBG pH 7.446 H Chloride 94.8 L Carbon Dioxide 34 H BUN Creatinine 7.8 H Glucose Calcium Phosphorus Ferritin Lactate Dehydrogenase C-Reactive Protein Albumin 3.8 L Coronavirus (PCR) 05/22/20 05/22/20 05/22/20 01:44 01:44 01:44 WBC RBC Hood % (Auto) Eos % (Auto) Lymph # (Auto) Seg Neutrophils # D-Dimer 648.89 H VBG pH Chloride Carbon Dioxide BUN Creatinine Glucose Calcium Phosphorus Ferritin 1695.0 H Lactate Dehydrogenase 459 H C-Reactive Protein 3.50 H Albumin Coronavirus (PCR) 12/27/20 12/28/20 10:13 08:57 WBC RBC Hood % (Auto) Eos % (Auto) Lymph # (Auto) Seg Neutrophils # D-Dimer VBG pH Chloride 93.7 L Carbon Dioxide BUN 51 H Creatinine 13.2 H D Glucose 131 H Calcium 7.4 L Phosphorus 5.00 H Ferritin Lactate Dehydrogenase C-Reactive Protein Albumin Coronavirus (PCR) Positive A Chest x-ray: report reviewed, image reviewed Additional Studies: CHEST 1 VIEW 05/21/20 INDICATION: possible Sepsis COMPARISON: 07/05/2019 FINDINGS: SUPPORT DEVICES: None. HEART / MEDIASTINUM: No significant abnormality. LUNGS / PLEURA: Bronchovascular markings are prominent. No pneumothorax. ADDITIONAL FINDINGS: IMPRESSION: 1. Prominent bronchovascular markings, inflammatory process is a concern
--- NOTE | 2020-05-23 14:07 | Discharge Summary ---
Providers - Providers Date of Admission: 05/22/20 01:34 Date of discharge: 05/23/20 Attending physician: JADIEL ZAMUDIO 05/22/20 02:10 Consult to Physician [CONS] Stat Comment: Consulting Provider: GLADIS IRENE Physician Instructions: Reason For Exam: Covid 05/22/20 11:25 Consult to Physician [CONS] Routine Comment: Consulting Provider: VIRGINIA CENTENO Physician Instructions: Reason For Exam: Respiratory Failure 2/2 COVID. Hx of asthma Primary care physician: PEDIATRIC REGISTERED NURSE Hospitalization Condition: Stable Hospital course: 49-year-old female with a medical history of asthma presents to Ed with chief complaint of shortness of breath. She also has a history of HIV, ESRD and hypertension. Patient reports she tested positive for COVID-19 approximately 1 week ago, which is when her symptoms began. Symptoms consist of loss of smell and taste, congestion, cough, fever, dizziness, and shortness of breath. Patient states she has been using nebulizer treatments at home. She presented as she felt more short of breath. Here in the ED, work up showed prominent bronchovascular markings. She was noted to desaturate to 87% on ambulation so she was admitted. She was started on dexamethasone and ID was consulted. As per ID, she is not a candidate for remdesivir. Pulmonary was also consulted. Today, she has really improved and she had a walk test and he oxygen remained 92 and above with ambulation and at rest. She will be discharged home to complete therapy. She agrees with management. Disposition: - TO HOME OR SELFCARE - Discharge Diagnoses (1) Acute respiratory failure with hypoxia Status: Acute (2) COVID-19 Status: Acute (3) ESRD (end stage renal disease) Status: Acute (4) HIV (human immunodeficiency virus infection) Status: Acute (5) Hypertension Status: Acute (6) Morbid (severe) obesity due to excess calories Status: Acute Core Measure Documentation - Palliative Care Palliative Care/ Comfort Measures: Not Applicable - Core Measures Any of the following diagnoses?: none Exam - Constitutional Vitals: Temp Pulse Resp BP Pulse Ox 98.1 F 81 16 146/85 97 05/23/20 13:25 05/23/20 13:45 05/23/20 13:25 05/23/20 13:45 05/23/20 11:50 General appearance: Present: no acute distress, well-nourished - EENT Eyes: Present: PERRL ENT: hearing intact, clear oral mucosa - Neck Neck: Present: supple, normal ROM - Respiratory Respiratory effort: normal Respiratory: bilateral: CTA - Cardiovascular Heart Sounds: Present: S1 & S2. Absent: rub, click - Extremities Extremities: pulses symmetrical, No edema Peripheral Pulses: within normal limits - Abdominal General gastrointestinal: Present: soft, non-tender, non-distended, normal bowel sounds Female genitourinary: Present: normal - Integumentary Integumentary: Present: clear, warm, dry - Musculoskeletal Musculoskeletal: gait normal, strength equal bilaterally - Psychiatric Psychiatric: appropriate mood/affect, intact judgment & insight - Neurologic Neurologic: CNII-XII intact, moves all extremities Plan Additional Instructions: Continue dexamethasone 6mg twice daily for 4 days then decrease to daily for 5 days. Complete antibiotics. Quarantine for at least 2 weeks and then follow up with PCP. Follow up with: PRIMARY CARE,MD [Primary Care Provider] - 3-5 Days Prescriptions: dexAMETHasone [Dexamethasone] 6 mg PO TITRATE #13 tablet Azithromycin [Zithromax Z-SANTIAGO] 250 mg PO DAILY #3 tablet Cefpodoxime Proxetil 200 mg PO Q48HR 7 Days tablet
--- NOTE | 2020-05-23 14:44 | Progress Note ---
Assessment and Plan 1. ESRD: Patient with known h/o ESRD on maintenance hemodialysis, TTS schedule. Last outpatient hemodialysis was on 05/21. Hemodialysis: 05/23 (UF only). 2. FEN: UF with HD as tolerated. Monitor lytes and volume status. 3. Severe sepsis, POA: Secondary to COVID-19 infection. Ceftriaxone and Azithromycin. Followed by ID. 4. Severe COVID-19 pneumonia: Dexamethasone 6 mg IV/PO BID for 5 days then 6 mg qday for 5 days total 10 days. Patient is not a candidate for remdesivir secondary to ESRD. Monitor inflammatory markers - ferritin, D-dimer, CRP, LDH. 5. Acute hypoxemic respiratory failure: Secondary to COVID-19 PNA. On RA now. 6. HIV infection: Continue home meds. 7. Anemia, POA: 2/2 ESRD. Epogen. 8. HTN: Continue home meds. Monitor BP. 9. Morbid obesity 2/2 excess calories. Subjective: Patient was seen and examined at the bedside. Doing better today. Examination: General appearance: well-developed, well-nourished, appears stated age, obese, on RA HEENT: ATNC, PERRL, hearing intact, vision intact Neck: supple Respiratory: ctab Heart: regular, S1S2, no murmur Abdomen: obese, soft, BS heard, NT Integumentary: no rash, warm and dry Neurologic: no focal deficit, no asterixis, alert and oriented x3 Ext: trace LE edema noted Hemodialysis access: Left arm AVF Psychiatric: mood/affect appropriate, cooperative Subjective Date of service: 05/23/20 Objective - Vital Signs Vital signs: Vital Signs - 12hr 05/23/20 05/23/20 05/23/20 06:19 11:50 13:25 Temperature 98.0 F 98.1 F 98.1 F Pulse Rate 90 89 85 Respiratory 20 16 16 Rate Blood Pressure 147/94 148/87 150/80 O2 Sat by Pulse 95 97 Oximetry 05/23/20 05/23/20 05/23/20 13:35 13:45 14:00 Temperature Pulse Rate 87 81 78 Respiratory Rate Blood Pressure 150/83 146/85 166/93 O2 Sat by Pulse Oximetry 05/23/20 05/23/20 14:15 14:30 Temperature Pulse Rate 80 78 Respiratory Rate Blood Pressure 171/97 162/94 O2 Sat by Pulse Oximetry - Lab 05/21/20 14:44 05/23/20 08:57 Most recent lab results Calcium 7.4 mg/dL (8.4-10.2) L 05/23/20 08:57 Phosphorus 5.00 mg/dL (2.5-4.5) H 05/23/20 08:57 Medications & Allergies - Medications Allergies/Adverse Reactions: Allergies No Known Allergies Allergy (Verified 02/06/17 15:01) Home Medications: Home Medications Medication Instructions Recorded Confirmed Last Taken Type ALBUTEROL NEB's [Proventil 0.083% 2.5 mg IH TID PRN #30 neb 07/20/14 06/20/17 06/19/17 Rx NEBS] Albuterol Mdi (or & Nicu Only) 2 puff IH QID PRN #1 can 07/05/16 06/20/17 04/10/17 Rx [ProAir HFA Inhaler] 2 puffs Budesoni/Formotero 160-4.5(Nf) 2 puff IH BID #1 can 07/05/16 06/20/17 08/07/16 Rx [Symbicort 160-4.5 (Nf)] Docusate Sodium [Colace CAP] 100 mg PO BID PRN #60 capsule 08/18/16 06/20/17 04/10/17 Rx 100 mg Abacavir [Ziagen TAB] 2 tab PO DAILY 04/11/17 06/20/17 06/19/17 History Losartan Potassium 100 mg PO DAILY 04/11/17 06/20/17 06/19/17 History 100 mg lamiVUDine [Epivir] 1 tab PO Q48HR 04/11/17 06/20/17 06/19/17 History Darunavir/Cobicistat [Prezcobix 1 each PO DAILY 06/20/17 06/20/17 06/19/17 History 800 mg-150 mg Tablet] Ferric Citrate (Nf) [Auryxia] 210 mg PO 09/02/17 09/01/17 History 840 ALBUTEROL Inhaler(NF) [VENTOLIN 1 puff IH Q4HR PRN #1 inha 04/01/18 Unknown Rx Inhaler(NF)] Azithromycin [Zithromax Z-SANTIAGO] 250 mg PO DAILY #3 tablet 05/23/20 Unknown Rx Cefpodoxime Proxetil 200 mg PO Q48HR 7 Days tablet 05/23/20 Unknown Rx dexAMETHasone [Dexamethasone] 6 mg PO TITRATE #13 tablet 05/23/20 Unknown Rx Active Medications: Generic Name Dose Route Start Last Admin Trade Name Freq PRN Reason Stop Dose Admin Albuterol 2.5 mg 05/22/20 02:40 Albuterol 2.5 Mg/3 Ml Nebu IH Q4HRT PRN Shortness Of Breath Arformoterol Tartrate 15 mcg 05/22/20 20:00 05/23/20 08:26 Arformoterol 15 Mcg/2 Ml Nebu IH 15 mcg Q12HRT YARELI Administration Benzonatate 100 mg 05/22/20 14:00 05/23/20 05:29 Benzonatate 100 Mg Cap PO 100 mg Q8HR YARELI Administration Budesonide 0.5 mg 05/22/20 20:00 05/23/20 08:27 Budesonide 0.5 Mg/2 Ml Nebu IH 0.5 mg Q12HRT YARELI Administration Dexamethasone 6 mg 05/22/20 13:00 05/23/20 09:33 Dexamethasone 4 Mg/Ml Vial IV 05/27/20 12:59 6 mg Q12HR YARELI Administration Dexamethasone 6 mg 05/28/20 10:00 Dexamethasone 4 Mg/Ml Vial IV 06/01/20 10:01 Q24HR YARELI Guaifenesin 200 mg 05/22/20 11:30 05/23/20 05:29 Guaifenesin 200 Mg Tab PO 200 mg Q6H PRN Administration Cough Heparin Sodium (Porcine) 3,000 unit 05/23/20 09:00 Heparin 10,000 Units/10 Ml Vial IV SAVANNAH PRN hemodialysis Hydralazine HCl 5 mg 05/22/20 02:25 Hydralazine 20 Mg/1 Ml Inj IV Q4H PRN Hypertension Azithromycin 500 mg/ Sodium 250 mls @ 250 mls/hr 05/22/20 10:00 05/23/20 09:33 Chloride IV 250 mls/hr Q24HR YARELI Administration Protocol Sodium Chloride 100 mls @ 999 mls/hr 05/23/20 09:00 Nacl 0.9% IV SAVANNAH PRN Hypotension Ceftriaxone Sodium 2 gm in 100 mls @ 200 mls/hr 05/23/20 12:00 05/23/20 13:03 Rocephin/Ns 2 Gm/100 Ml IV 200 mls/hr Q24H YARELI Administration Protocol Lamivudine mg 05/23/20 10:00 Lamivudine 150 Mg Tab PO Q48HR [facility] Miscellaneous Medication 1 each 05/23/20 17:00 Darunavir/Cobicistat [Prezcobix 800 Mg-150 Mg Tablet] PO DAILY [facility] Ondansetron HCl 4 mg 05/22/20 02:40 05/22/20 12:17 Ondansetron 4 Mg/2 Ml Inj IV 4 mg Q4H PRN Administration Nausea And Vomiting Pantoprazole Sodium 40 mg 05/24/20 07:30 Pantoprazole 40 Mg Tab PO QDAC [facility] Tramadol HCl 50 mg 05/22/20 02:40 Tramadol 50 Mg Tab PO Q4H PRN Pain, Moderate (4-6) Trazodone HCl 50 mg 05/22/20 02:40 Trazodone 50 Mg Tab PO QHS PRN Insomnia
[2020-05-23 14:59] LABS: Hepatitis B Surface Antigen Non-Reactive (Negative); Hepatitis C Virus Antibody Non-Reactive (NonReactive)
--- NOTE | 2020-05-23 15:33 | Progress Note ---
Assessment and Plan Cultures: Blood culture 05/21/2020 no growth Assessment: 49 years old female with history of morbid obesity, asthma, ESRD on hemodialysis Saturday, and Saturday, HIV infection follows with Dr. De La Cruz, currently on Tivicay, Prezcobix and lamivudine, viral load undetectable per patient report, admitted on 05/21/2020 secondary to a week history of generalized malaise, body aches, loss of taste and smell, cough, chest congestion, fever of 103.9 at home, and shortness of breath: #Severe sepsis: improved #Severe COVID-19 pneumonia: Chest x-ray with bilateral prominent bronchovascular markings. Inflammatory markers elevated. D-dimer 648. #Acute hypoxemic respiratory failure: resolved #ESRD: On hemodialysis Saturday, and Saturdays #HIV infection: Undetectable viral load per patient report. Patient follows with Dr. De La Cruz, last time seen 2 months ago. She takes Tivicay, Prezcobix and lamivudine #Morbid obesity #Leucopenia: Likely secondary to COVID-19. Recommendations: Complete steroid course (10 days) Continue patient's home regimen for ART: Lamivudine, dolutegravir, Prezcobix Given resolution of hypoxia, okay for discharge from ID standpoint ID will sign off. Mary Curran MD, FACP [facility] O: [phone] F: [phone] Subjective Date of service: 05/23/20 Interval history: No fever. Oxygen weaned to room air. Per RN note, resting oxygen saturations on room air: 95%, upon ambulation: 92%. Objective - Exam Narrative Exam: Physical Exam (reviewed in chart to minimize risk of transmission) Constitutional: deferred Head, Ears, Nose: deferred Eyes: deferred Neck: deferred Oral: deferred Cardiovascular: deferred Respiratory: deferred GI: deferred Musculoskeletal: deferred Skin: deferred Hem/Lymphatic: deferred Psych: deferred Neurological: deferred - Constitutional Vitals: Vital Signs Temp Pulse Resp BP Pulse Ox 98.1 F 78 16 157/94 97 05/23/20 13:25 05/23/20 15:15 05/23/20 13:25 05/23/20 15:15 05/23/20 11:50 Temperature -Last 24 Hours Temperature 98.1 F Temperature 98.1 F Temperature 98.0 F Temperature 98.7 F Temperature 98.3 F - Labs CBC & Chem 7: 05/21/20 14:44 05/23/20 08:57 Labs: Abnormal lab results 05/23/20 Range/Units 08:57 Chloride 93.7 L (98-107) mmol/L BUN 51 H (7-17) mg/dL Creatinine 13.2 H D (0.6-1.2) mg/dL Glucose 131 H (65-100) mg/dL Calcium 7.4 L (8.4-10.2) mg/dL Phosphorus 5.00 H (2.5-4.5) mg/dL
[2020-05-23] MEDS ORDERED: DARUNAVIR PO SCH (17:00)
[2020-05-23] MEDS ORDERED: DOLUTEGRAVIR 50 MG TAB PO SCH (17:00)
[2020-05-23] MEDS ORDERED: COBICISTAT PO SCH (17:00)
[2020-05-23] MEDS ORDERED: [UNRECOGNIZED DRUG - OTHER] PO SCH (17:00)
[2020-05-23 17:25] VITALS: BP 153/85
--- NOTE | 2020-05-23 22:28 | Consultation ---
PULMONARY CONSULTATION NOTE CONSULTING PHYSICIAN: Dr. Rodriguez. REASON FOR CONSULTATION: Respiratory distress, COVID-19 infection. CHIEF COMPLAINT AND HISTORY OF PRESENT ILLNESS: The patient is a 49-year-old female with past medical history significant amongst other things for a diagnosis of being HIV positive, but also obesity, who presented to the Emergency Room with shortness of breath. She reportedly had been going on for about 2-3 days. She stated she has tested positive for COVID a week prior and the symptoms seem to have been progressive. She complained of loss of smell and taste. She complained of cough and congestion. She denied hemoptysis. She is also on dialysis, end-stage renal disease and has not missed any sessions. In the Emergency Room, she was evaluated, this was after she developed according to her increasing shortness of breath during dialysis. We are asked to assist with management. When I stopped by to see her, she was actually standing up in the room, feeling a little bit better. Denied acute chest pains. She denied any known contacts with COVID positive people. She denied any new onset leg pain or swelling either unilaterally or bilaterally or any suggestion of deep venous thrombosis. When asked about tobacco use or abuse history, she describes herself as a never smoker. That really is as much of the history of presentation as I have. PAST MEDICAL HISTORY: Again, significant for HIV positivity, end-stage renal disease, on dialysis; history of asthma, history of hypertension. She is obese. PAST SURGICAL HISTORY: She has had bilateral tubal ligations and left chest PermCath and the left upper extremity fistula. MEDICATIONS: She was on at the time I stopped by to see were reviewed. Pertinent medications included the following: She was on albuterol nebs 2.5 mg q. 4 hours p.r.n. shortness of breath, Brovana 15 mcg nebulized q. 12 hours, Tessalon Perles 100 mg p.o. q. 8 hours, Pulmicort 0.5 mg nebulized q. 12 hours, dexamethasone 6 mg IV q. 12 hours, hydralazine p.r.n. for elevated blood pressure, Zithromax 500 mg IV daily, Rocephin 1 gram IV daily, Zofran 4 mg IV q. 4 hours p.r.n. nausea and vomiting, Protonix 40 mg IV daily, tramadol 50 mg p.o. q. 4 hours p.r.n. moderate pain, and trazodone 50 mg p.o. at bedtime p.r.n. insomnia. ALLERGIES: No known drug allergies. DIET: Obese lady. Denies acute weight loss or gain in the preceding few weeks to months. FAMILY AND SOCIAL HISTORY: Lives in the community. Denies alcohol, tobacco, or illicit drug use or abuse. Family history otherwise, noncontributory. REVIEW OF SYSTEMS: No loss of consciousness. No new onset seizures. She has had the shortness of breath. She has had dyspnea on exertion. She denies gross hematochezia or melena. Denies gross hematuria or dysuria. Denies hematemesis, no hemoptysis. She has a cough. Denies polydipsia or polyuria. Denies heat or cold intolerance. Complete 13-system review of systems obtained. Pertinent positives and/or negatives as in body of history above, otherwise noncontributory. PHYSICAL EXAMINATION: VITAL SIGNS: At presentation, she was febrile, temperature 102.9 degrees Fahrenheit, pulse 114, respiratory rate of 20, blood pressure 173/90, O2 sats were 91% at presentation, inspired oxygen concentration was not recorded at that time. When I stopped by to see her, O2 sats were 98% and that was on room air. GENERAL: She is a middle-aged obese female, normocephalic, atraumatic, talking to me in full sentences without significantly increased respiratory effort at rest. HEAD, EYES, EARS, NOSE AND THROAT: Anicteric. No conjunctival erythema. Oropharynx was moist. Mallampati #3 oropharynx. No gross jugular venous distention, no thyromegaly. NECK: Grossly, there were no palpable lymph nodes in the supraclavicular or submandibular lymph node chains. She does have a large neck circumference. LUNGS: Auscultation of both lung joyner significant for diminished bilateral breath sounds, bibasilar inspiratory rhonchi, no wheezing. HEART: Heart sounds 1 and 2 are heard. They were regular in rate and rhythm at time of my evaluation without overt rubs or murmurs. ABDOMEN: Soft, full, bowel sounds are positive, nontender, no palpable hepatosplenomegaly. EXTREMITIES: Without overt digital clubbing, no cyanosis, no pedal edema. Pedal pulses were 2+ bilaterally. NEUROLOGIC: Pupils were equal, round, about 4 mm, reactive to light. Extraocular muscle movements are intact. She moves all 4 extremities spontaneously. SKIN: Normal turgor in the areas examined without overt cellulitis or rash. Please see the wound care nurse's notes for full description of her skin. PSYCHIATRIC: Mood was normal. Affect was appropriate. She had intact insight and judgment. LABORATORY DATA: From my review are as follows: Admission white cell count 2700 with a hemoglobin of 10.4, hematocrit of 31.4, platelet count of 156. D-dimer was 649. Venous blood gas showed a pH of 7.45. Serum sodium was 139, potassium 3.8, chloride 95, bicarbonate 34, BUN 17, creatinine 7.8, glucose was 93. Lactic acid level within normal limits. Ferritin up at 1695. CRP was 3.5. Procalcitonin 0.63. LDH was up at 459. Coronavirus PCR was positive. Two sets of blood cultures, no growth to date. Chest x-ray revealed gross cardiomegaly and increased interstitial markings also mildly increased associated by soft tissue shadows, but certainly appears probably an inflammatory process. No gross pneumothorax. ASSESSMENT: 1. Acute respiratory distress. 2. COVID-19 infection. 3. Bilateral pneumonia versus pulmonary edema. 4. End-stage renal disease, on dialysis. 5. History of asthma. 6. Human immunodeficiency virus positive. 7. Leukopenia. 8. Elevated serum inflammatory markers to include ferritin, D-dimer levels. 9. COVID-19 infection. 10. History of hypertension, poorly controlled. PLAN: We will keep her at COVID-19 precautions with airborne and contact precautions acutely. Oxygen will be supplemented as necessary to keep sats greater than or equal to about 92%. She will be continued on her bronchodilators with pulmonary hygiene per the respiratory therapist. We will look to dialysis for toxin and volume clearance. I will continue systemic steroids, but change it to daily dosing 6 mg IV daily. On the Decadron, I will also offer p.r.n. noninvasive ventilation for increased work of breathing and shortness of breath. Empiric community-acquired pneumonia therapy will be continued. Infectious Disease consultation will be at the behest of the attending physician. Glycemic control will be for target blood glucose of less than 180 mg/dL. She will be placed on DVT prophylaxis. She is on GI prophylaxis. Chronic antiretroviral therapy will be continued. Flu and pneumonia vaccination will be addressed per protocol. Infectious Disease has been consulted. Thank you very much for the consult. We will follow along and make further recommendations as picture progresses/becomes clearer. JOB# [id number] SARAH/NTS
[2020-05-24] MEDS ORDERED: PANTOPRAZOLE 40 MG TAB PO SCH (07:30)
[2020-05-25 10:51] LABS: Vitamin D, 25-OH, D2 <4 ng/mL
[2020-05-28] MEDS ORDERED: dexAMETHasone 4 MG/ML VIAL IV SCH (10:00)
== END 2020-05-23 18:07 | disposition home or self-care (01) ==
LOC: ED 14:30 → 3A 05-22 01:34
PROVIDERS: ADMIT Internal Medicine; ATTEND Internal Medicine
DX: U07.1 COVID-19 (principal); A41.9 Sepsis, unspecified organism; R65.21 Severe sepsis with septic shock; J96.01 Acute respiratory failure with hypoxia; J12.89 Other viral pneumonia; I12.0 Hypertensive chronic kidney disease with stage 5 chronic kidney disease or end stage renal disease; N18.6 End stage renal disease; J44.9 Chronic obstructive pulmonary disease, unspecified; E66.01 Morbid (severe) obesity due to excess calories; K21.9 Gastro-esophageal reflux disease without esophagitis; D72.819 Decreased white blood cell count, unspecified; D63.1 Anemia in chronic kidney disease; R79.89 Other specified abnormal findings of blood chemistry; Z21 Asymptomatic human immunodeficiency virus [HIV] infection status; Z98.51 Tubal ligation status; Z98.890 Other specified postprocedural states; Z99.2 Dependence on renal dialysis; Z79.899 Other long term (current) drug therapy
CPT/HCPCS: 36415; 71045; 80048; 80053; 80074; 82140; 82306; 82728; 82805; 83036; 83615; 84100; 84145; 85025; 85379; 85610; 86140; 87040; 94640; 96365; 96366; 96367; 96375; 96376; 99291; C9113; G0378; J0456; J0696; J1100; J2405; J7040; J7050; J8540; U0003

== ENCOUNTER 2020-12-06 07:02 | Observation (INO) | payer MEDICARE ==
--- NOTE | 2020-12-06 07:22 | Emergency Department Report ---
ED General Adult HPI - General Chief complaint: Dyspnea/Respdistress Stated complaint: SHORTNESS OF BREATH PUI?: No Time Seen by Provider: 12/06/20 07:20 Source: patient, EMS ( EMS documentation not available at time of chart dictation ), RN notes reviewed, old records reviewed Mode of arrival: Stretcher Limitations: Physical Limitation - History of Present Illness Initial comments: The patient is a 50-year-old female. Her past medical history includes asthma, no intubations, multiple hospitalizations, BMI 44.9, COVID-14 May 2020, history of HIV, end-stage renal disease and hypertension. Her drupal developer is Dr. Laly Mcneal The patient typically receives dialysis Saturday, and Saturday. The patient presents to the ER with a complaint of cough, chest tightness, shortness of breath, wheezing, and left lower extremity swelling. No fever, no vomiting, no abdominal pain, no hematemesis of bright red blood per rectum. Reports recent 7-hour trip to [place] where she was mostly immobilized. She has been using her albuterol at home with minimal improvement in symptoms. No steroids recently that she is aware of. She also feels like her left leg is more swollen than usual. She also describes discomfort between her left second and third toe, and feels like the skin is macerated. -: Gradual, days(s) Location: chest, right, lower extremity Radiation: non-radiation Quality: aching Consistency: intermittent Improves with: rest Worsens with: movement, other (Palpation) - Related Data Home Medications Medication Instructions Recorded Confirmed Last Taken Abacavir [Ziagen TAB] 2 tab PO DAILY 04/11/17 06/20/17 06/19/17 Losartan Potassium 100 mg PO DAILY 04/11/17 06/20/17 06/19/17 100 mg lamiVUDine [Epivir] 1 tab PO Q48HR 04/11/17 12/06/20 06/19/17 Darunavir/Cobicistat [Prezcobix 1 each PO DAILY 06/20/17 06/20/17 06/19/17 800 mg-150 mg Tablet] Ferric Citrate (Nf) [Auryxia] 210 mg PO 09/02/17 09/01/17 840 Previous Rx's Medication Instructions Recorded Last Taken Type ALBUTEROL NEB's [Proventil 0.083% 2.5 mg IH TID PRN #30 neb 07/20/14 06/19/17 Rx NEBS] Albuterol Mdi (or & Nicu Only) 2 puff IH QID PRN #1 can 07/05/16 04/10/17 Rx [ProAir HFA Inhaler] 2 puffs Budesoni/Formotero 160-4.5(Nf) 2 puff IH BID #1 can 07/05/16 08/07/16 Rx [Symbicort 160-4.5 (Nf)] Docusate Sodium [Colace CAP] 100 mg PO BID PRN #60 capsule 08/18/16 04/10/17 Rx 100 mg ALBUTEROL Inhaler(NF) [VENTOLIN 1 puff IH Q4HR PRN #1 inha 04/01/18 Unknown Rx Inhaler(NF)] Azithromycin [Zithromax Z-SANTIAGO] 250 mg PO DAILY #3 tablet 05/23/20 Unknown Rx Cefpodoxime Proxetil 200 mg PO Q48HR 7 Days tablet 05/23/20 Unknown Rx dexAMETHasone [Dexamethasone] 6 mg PO TITRATE #13 tablet 05/23/20 Unknown Rx Allergies Allergy/AdvReac Type Severity Reaction Status Date / Time No Known Allergies Allergy Verified 02/06/17 15:01 ED Review of Systems ROS: Stated complaint: SHORTNESS OF BREATH Other details as noted in HPI Constitutional: malaise, weakness. denies: fever Eyes: denies: eye discharge ENT: congestion. denies: epistaxis Respiratory: cough, shortness of breath, SOB with exertion, SOB at rest, wheezing Cardiovascular: chest pain, edema Gastrointestinal: denies: abdominal pain, vomiting Genitourinary: denies: dysuria Musculoskeletal: myalgia Neurological: weakness Hematological/Lymphatic: denies: easy bleeding ED Past Medical Hx - Past Medical History Hx Hypertension: Yes Hx Congestive Heart Failure: No Hx Diabetes: Yes Hx GERD: Yes Hx Renal Disease: Yes (dialysis T, T, S) Hx Asthma: Yes Hx COPD: No Hx Tuberculosis: No Hx HIV: Yes (normal CD4 count May 2019) Additional medical history: anemia, uterine fibroids - Surgical History Additional Surgical History: Bilateral tubal ligation, left chest PermCath, LUE fistula - Social History Smoking Status: Never Smoker - Medications Home Medications: Home Medications Medication Instructions Recorded Confirmed Last Taken Type ALBUTEROL NEB's [Proventil 0.083% 2.5 mg IH TID PRN #30 neb 07/20/14 06/20/17 Rx NEBS] Albuterol Mdi (or & Nicu Only) 2 puff IH QID PRN #1 can 07/05/16 06/20/17 Rx [ProAir HFA Inhaler] 2 puffs Budesoni/Formotero 160-4.5(Nf) 2 puff IH BID #1 can 07/05/16 06/20/17 08/07/16 Rx [Symbicort 160-4.5 (Nf)] Docusate Sodium [Colace CAP] 100 mg PO BID PRN #60 capsule 08/18/16 06/20/17 04/10/17 Rx 100 mg Abacavir [Ziagen TAB] 2 tab PO DAILY 04/11/17 06/20/17 06/19/17 History Losartan Potassium 100 mg PO DAILY 04/11/17 06/20/17 06/19/17 History 100 mg lamiVUDine [Epivir] 1 tab PO Q48HR 04/11/17 12/06/20 06/19/17 History Darunavir/Cobicistat [Prezcobix 1 each PO DAILY 06/20/17 06/20/17 06/19/17 History 800 mg-150 mg Tablet] Ferric Citrate (Nf) [Auryxia] 210 mg PO 09/02/17 09/01/17 History 840 ALBUTEROL Inhaler(NF) [VENTOLIN 1 puff IH Q4HR PRN #1 inha 04/01/18 Unknown Rx Inhaler(NF)] Azithromycin [Zithromax Z-SANTIAGO] 250 mg PO DAILY #3 tablet 05/23/20 Unknown Rx Cefpodoxime Proxetil 200 mg PO Q48HR 7 Days tablet 05/23/20 Unknown Rx dexAMETHasone [Dexamethasone] 6 mg PO TITRATE #13 tablet 05/23/20 12/06/20 Unknown Rx ED Physical Exam - General Limitations: Physical Limitation General appearance: alert, anxious, in distress, obese - Head Head exam: Present: atraumatic, normocephalic - Eye Eye exam: Present: normal appearance, EOMI. Absent: nystagmus - ENT ENT exam: Present: normal exam, normal orophraynx, mucous membranes moist, normal external ear exam - Neck Neck exam: Present: normal inspection, full ROM. Absent: tenderness, meningismus - Respiratory Respiratory exam: Present: respiratory distress, wheezes, rhonchi, decreased breath sounds. Absent: stridor - Cardiovascular Cardiovascular Exam: Present: regular rate, normal rhythm, normal heart sounds, JVD. Absent: bradycardia, tachycardia, irregular rhythm, systolic murmur, diastolic murmur, rubs, gallop - GI/Abdominal GI/Abdominal exam: Present: soft. Absent: distended, tenderness, guarding, rebound, rigid, pulsatile mass - Extremities Exam Extremities exam: Present: normal inspection (There is a left upper extremity fistula, with appropriate thrill, without redness, pus or streaking), full ROM, pedal edema (There is 2-3+ edema in the bilateral lower extremities, although the left lower extremity is asymmetrically swollen when compared to the right lower extremity), other (2+ pulses noted in the bilateral upper and lower extremities. There is no long bony tenderness. The muscular compartments are soft. The pelvis is stable.). Absent: calf tenderness - Back Exam Back exam: Present: normal inspection. Absent: tenderness, CVA tenderness (R), CVA tenderness (L), paraspinal tenderness, vertebral tenderness - Neurological Exam Neurological exam: Present: alert, other (No facial droop. Tongue midline. Extraocular movements intact bilaterally. Facial sensation intact to light touch in V1, V2, V3 distribution bilaterally. 5 and a 5 strength in 4 extremities. Sensation intact to light touch in 4 extremities.). Absent: motor sensory deficit - Psychiatric Psychiatric exam: Present: normal affect, normal mood, anxious - Skin Skin exam: Present: warm, other (Macerated skin noted on the left foot, between toes #2 and 3, with serous discharge.) ED Course Vital Signs 12/06/20 12/06/20 12/06/20 07:30 07:44 07:46 Temperature 98.6 F Pulse Rate 119 H Pulse Rate [ Bilateral] Respiratory 20 Rate Respiratory Rate [Bilateral ] Blood Pressure 161/90 O2 Sat by Pulse 90 95 Oximetry 12/06/20 12/06/20 12/06/20 07:54 08:00 08:16 Temperature Pulse Rate 118 H 101 H Pulse Rate [ Bilateral] Respiratory 24 22 17 Rate Respiratory Rate [Bilateral ] Blood Pressure 176/103 176/103 O2 Sat by Pulse 95 89 90 Oximetry 12/06/20 12/06/20 12/06/20 08:30 08:46 09:00 Temperature Pulse Rate 102 H 99 H 100 H Pulse Rate [ Bilateral] Respiratory 25 H 15 24 Rate Respiratory Rate [Bilateral ] Blood Pressure 176/103 176/103 176/93 O2 Sat by Pulse 87 92 92 Oximetry 12/06/20 12/06/20 12/06/20 09:14 09:16 09:30 Temperature Pulse Rate 101 H 93 H Pulse Rate [ 96 H Bilateral] Respiratory 22 23 Rate Respiratory 17 Rate [Bilateral ] Blood Pressure 176/93 176/93 O2 Sat by Pulse 93 90 Oximetry 12/06/20 12/06/20 12/06/20 09:46 10:00 10:16 Temperature Pulse Rate 88 96 H 102 H Pulse Rate [ Bilateral] Respiratory 20 21 22 Rate Respiratory Rate [Bilateral ] Blood Pressure 176/93 176/93 176/93 O2 Sat by Pulse 94 91 92 Oximetry 12/06/20 10:30 Temperature Pulse Rate 97 H Pulse Rate [ Bilateral] Respiratory 26 H Rate Respiratory Rate [Bilateral ] Blood Pressure 176/93 O2 Sat by Pulse 97 Oximetry - Reevaluation(s) Reevaluation #1: 12/06/20 10:34 Differential diagnosis, including but not limited to: Asthma exacerbation, pneumonia, fluid overload, azotemia, uremia, left lower extremity DVT, coronary artery disease, hypertensive urgency Assessment and plan: 50-year-old female, who is hypoxic during my initial interview, saturating at 90 to 94% on room air, with diminished breath sounds, hypertensive, blood pressure 180 systolic, with left lower extremity swelling, left lower extremity pain, right lower extremity swelling, JVD, with clinical radiographic evidence of fluid overload, as well as asthma exacerbation. Also reports recent 7-hour trip to [place]. Moderate risk for major adverse cardiac event as per heart score. 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 Start albuterol, Atrovent, steroids, aspirin, as needed nitroglycerin, and magnesium. Laboratory studies demonstrate elevated troponin, which is likely a type II troponin leak. D-dimer elevated, nuclear medicine study is ordered. Left lower extremity DVT studies pending interpretation at this time. Have placed a page out to this patient's private drupal developer. We are awaiting callback at this time. Have discussed this plan of care with the patient, who is amenable to admission. 12/06/20 11:23 Dr Patricio Barry to admit to [facility] Nuclear medicine study is pending. V/Q studies pending. Lower extremity DVT study interpretation is pending. 12/06/20 12:34 Left lower extremity DVT study is negative for acute findings. Nuclear medicine studies pending Reevaluation #2: 12/06/20 14:05 Nuclear medicine study is low probability for pulmonary embolism. - Consultations Consultation #1: 12/06/20 10:59 Discussed history, physical, laboratory studies, physical exam findings and overall clinical impression with patient's primary drupal developer, Dr. Mcneal High-dose Lasix is ordered. He will follow in consultation. He is agreeable to admission. Hospital physician will be paged to arrange admission. ED Medical Decision Making - Lab Data Result diagrams: 12/06/20 08:26 12/06/20 08:26 Vital Signs 12/06/20 12/06/20 12/06/20 07:44 07:54 09:14 Temperature 98.6 F Pulse Rate [ 96 H Bilateral] Respiratory 24 Rate Respiratory 17 Rate [Bilateral ] O2 Sat by Pulse 95 Oximetry Lab Results 12/06/20 12/06/20 12/06/20 Range/Units 08:26 08:26 08:26 WBC 4.0 L (4.5-11.0) K/mm3 RBC 3.17 L (3.65-5.03) M/mm3 Hgb 9.1 L (10.1-14.3) gm/dl Hct 28.4 L (30.3-42.9) % MCV 90 (79-97) fl MCH 29 (28-32) pg MCHC 32 (30-34) % RDW 16.4 H (13.2-15.2) % Plt Count 182 (140-440) K/mm3 PT 14.3 (12.2-14.9) Sec. INR 1.06 (0.87-1.13) D-Dimer 359.11 H (0-234) ng/mlDDU Sodium 143 (137-145) mmol/L Potassium 4.8 (3.6-5.0) mmol/L Chloride 100.0 (98-107) mmol/L Carbon Dioxide 25 (22-30) mmol/L Anion Gap 23 mmol/L BUN 51 H (7-17) mg/dL Creatinine 15.1 H (0.6-1.2) mg/dL Estimated GFR 3 ml/min BUN/Creatinine Ratio 3 % Glucose 83 (65-100) mg/dL Calcium 9.9 (8.4-10.2) mg/dL Magnesium 2.30 (1.7-2.3) mg/dL Total Creatine Kinase (30-135) units/L Troponin T (0.00-0.029) ng/mL NT-Pro-B Natriuret Pep (0-450) pg/mL HCG, Quant (0-4) mIU/mL 12/06/20 12/06/20 12/06/20 Range/Units 08:26 08:26 08:26 WBC (4.5-11.0) K/mm3 RBC (3.65-5.03) M/mm3 Hgb (10.1-14.3) gm/dl Hct (30.3-42.9) % MCV (79-97) fl MCH (28-32) pg MCHC (30-34) % RDW (13.2-15.2) % Plt Count (140-440) K/mm3 PT (12.2-14.9) Sec. INR (0.87-1.13) D-Dimer (0-234) ng/mlDDU Sodium (137-145) mmol/L Potassium (3.6-5.0) mmol/L Chloride (98-107) mmol/L Carbon Dioxide (22-30) mmol/L Anion Gap mmol/L BUN (7-17) mg/dL Creatinine (0.6-1.2) mg/dL Estimated GFR ml/min BUN/Creatinine Ratio % Glucose (65-100) mg/dL Calcium (8.4-10.2) mg/dL Magnesium (1.7-2.3) mg/dL Total Creatine Kinase 262 H (30-135) units/L Troponin T 0.061 H (0.00-0.029) ng/mL NT-Pro-B Natriuret Pep 64313 H (0-450) pg/mL HCG, Quant < 2 (0-4) mIU/mL - EKG Data -: EKG Interpreted by Ms EKG shows normal: sinus rhythm Rate: normal - EKG Data 12/06/20 10:37 EKG interpreted at 07: 55 Sinus rhythm, rate 118 bpm, tachycardia, QTC 485 ms, poor R wave progression, motion artifact. Abnormal EKG. Not a STEMI. When compared to prior EKG, poor R wave progression appears to be new. - Radiology Data Radiology results: pending, report reviewed, image reviewed [facility] [address] [place] [address] XRay Report Signed Patient: DORIS LANZA MR#: [id number] : 1970 Acct:[id number] Age/Sex: 50 / F ADM Date: 12/06/20 Loc: ED Attending Dr: Leela monreal Physician: RITO BENZ MD Date of Service: 12/06/20 Procedure(s): XR chest 1V ap Accession Number(s): [id number] cc: RITO BENZ MD Fluoro Time In Minutes: CHEST 1 VIEW 12/06/2020 10:38 AM INDICATION / CLINICAL INFORMATION: dyspnea. COMPARISON: 05/21/2020 FINDINGS: SUPPORT DEVICES: None. HEART / MEDIASTINUM: No significant abnormality. LUNGS / PLEURA: There is mild venous congestion. No focal infiltrate is seen. No pneumothorax is seen. Vascular stents are noted in the left axilla. No pneumothorax. ADDITIONAL FINDINGS: No significant additional findings. IMPRESSION: 1. There is mild venous congestion. Signer Name: Juan Aguilar MD Signed: 12/06/2020 10:50 AM Workstation Name: [id number] Transcribed By: SS Dictated By: Juan Aguilar MD Electronically Authenticated By: Juan Aguilar MD Signed Date/Time: 12/06/20 1050 DD/ 1046 Critical Care Time: Yes Critical care time in (mins) excluding proc time.: 35 Critical care attestation.: If time is entered above; I have spent that time in minutes in the direct care of this critically ill patient, excluding procedure time. ED Disposition Clinical Impression: Uncontrolled hypertension, ESRD (end stage renal disease) on dialysis, Left leg pain, Volume overload, Acute asthma exacerbation, Acute chest pain Disposition: OP ADMIT IP TO THIS HOSP Is pt being admited?: Yes Does the pt Need Aspirin: Yes Condition: Stable Instructions: Chest Pain (ED), Hypertension (ED) Referrals: PRIMARY CARE,MD [Primary Care Provider] - 3-5 Days Heart Score - HEART Score History: Moderately suspicious EKG: Non-specific Age: 45-65 Risk factors: > 3 risk factors or hx of atherosclerotic disease Troponin: 1-3x normal limit HEART Score: 6 - EKG Read Time Time EKG Completed: 07:55 EKG Read Time: 07:55 - Critical Actions Critical Actions: 4-6 pts:12-16.6% risk of adverse cardiac event. Should be admitted
[2020-12-06] MEDS ORDERED: hydrALAZINE 20 MG/1 ML INJ IV ONE (08:55)
[2020-12-06] MEDS ORDERED: ACETAMINOPHEN 325 MG TAB PO ONE (08:55)
[2020-12-06] MEDS ORDERED: IPRATROPIUM 0.02% NEBU 2.5 ML IH ONE (08:55)
[2020-12-06] MEDS ORDERED: ALBUTEROL 2.5 MG/3 ML NEBU IH ONE (08:55)
[2020-12-06] MEDS ORDERED: ASPIRIN 325 MG TAB PO ONE (08:55)
[2020-12-06] MEDS ORDERED: MAGNESIUM SULFATE 2 GM/50 ML BAG IV ONE (08:55)
[2020-12-06] MEDS ORDERED: methylPREDNISolone Sod Succinate 125 MG/2 ML INJ IV ONE (08:55)
[2020-12-06] MEDS ORDERED: NITROGLYCERIN 0.4 MG TAB SUBL SL PRN (08:55)
[2020-12-06 09:06] LABS: Hematocrit 28.4 % (30.3-42.9); Hemoglobin 9.1 gm/dl (10.1-14.3); Mean Corpuscular HGB Conc 32 % (30-34); Mean Corpuscular Volume 90 fl (79-97); Platelet Count 182 K/mm3 (140-440); Red Blood Count 3.17 M/mm3 (3.65-5.03); Red Cell Distribution Width 16.4 % (13.2-15.2)
[2020-12-06 09:20] LABS: INR 1.06 (0.87-1.13)
[2020-12-06 09:23] LABS: Calcium 9.9 mg/dL (8.4-10.2)
[2020-12-06 10:51] LABS: Chol/HDL Ratio 3.46 %
--- NOTE | 2020-12-06 10:54 | XRay Report ---
CHEST 1 VIEW 12/06/2020 10:38 AM INDICATION / CLINICAL INFORMATION: dyspnea. COMPARISON: 05/21/2020 FINDINGS: SUPPORT DEVICES: None. HEART / MEDIASTINUM: No significant abnormality. LUNGS / PLEURA: There is mild venous congestion. No focal infiltrate is seen. No pneumothorax is seen . Vascular stents are noted in the left axilla. No pneumothorax. ADDITIONAL FINDINGS: No significant additional findings. IMPRESSION: 1. There is mild venous congestion. Signer Name: Juan Aguilar MD Signed: 12/06/2020 10:50 AM Workstation Name: [id number]
[2020-12-06] MEDS ORDERED: FUROSEMIDE 40 MG/4 ML INJ IV ONE (10:57)
--- NOTE | 2020-12-06 10:58 | Electrocardiograph Report ---
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
--- NOTE | 2020-12-06 11:22 | Consultation ---
History of Present Illness - Reason for Consult Consult date: 12/06/20 end stage renal disease - History of Present Illness is a 50 YO AAF who is well known to our service with medical history significant for Morbid obesity, Hypertension, Anemia, HIV, Secondary hyperparathyroidism and ESRD on hemodialysis (TTS) who presented to [facility] ED 12/06 20 with one day history of shortness of breath. The symptoms started yesterday but got worse today. She also reports chest tightness, wheezing, non-productive cough and left lower extremity swelling. Reports recent 7-hour trip to [place] where she was mostly immobilized. She has been using her albuterol at home with minimal improvement in symptoms. No steroids recently that she is aware of. Patient denies fever, N, V, D, abd pain, hemoptysis, hematemesis, dizziness or syncope. She went to hemodialysis unit today AM but EMS was called due to tachycardia and uncontrolled HTN. She also reports . Chest x-ray showed mild venous congestion. Patient was last dialyzed on 12/03. Nephrology was consulted for ESRD management. Past History Past Medical History: other (See HPI.) Medications and Allergies Allergies Allergy/AdvReac Type Severity Reaction Status Date / Time No Known Allergies Allergy Verified 02/06/17 15:01 Home Medications Medication Instructions Recorded Confirmed Last Taken Type ALBUTEROL NEB's [Proventil 0.083% 2.5 mg IH TID PRN #30 neb 07/20/14 06/20/17 06/19/17 Rx NEBS] Albuterol Mdi (or & Nicu Only) 2 puff IH QID PRN #1 can 07/05/16 06/20/17 04/10/17 Rx [ProAir HFA Inhaler] 2 puffs Budesoni/Formotero 160-4.5(Nf) 2 puff IH BID #1 can 07/05/16 06/20/17 08/07/16 Rx [Symbicort 160-4.5 (Nf)] Docusate Sodium [Colace CAP] 100 mg PO BID PRN #60 capsule 08/18/16 06/20/17 04/10/17 Rx 100 mg Abacavir [Ziagen TAB] 2 tab PO DAILY 04/11/17 06/20/17 06/19/17 History Losartan Potassium 100 mg PO DAILY 04/11/17 06/20/17 06/19/17 History 100 mg lamiVUDine [Epivir] 1 tab PO Q48HR 04/11/17 12/06/20 06/19/17 History Darunavir/Cobicistat [Prezcobix 1 each PO DAILY 06/20/17 06/20/17 06/19/17 History 800 mg-150 mg Tablet] Ferric Citrate (Nf) [Auryxia] 210 mg PO 09/02/17 09/01/17 History 840 ALBUTEROL Inhaler(NF) [VENTOLIN 1 puff IH Q4HR PRN #1 inha 04/01/18 Unknown Rx Inhaler(NF)] Azithromycin [Zithromax Z-SANTIAGO] 250 mg PO DAILY #3 tablet 05/23/20 Unknown Rx Cefpodoxime Proxetil 200 mg PO Q48HR 7 Days tablet 05/23/20 Unknown Rx dexAMETHasone [Dexamethasone] 6 mg PO TITRATE #13 tablet 05/23/20 12/06/20 Unkn own Rx Active Meds: Active Medications Nitroglycerin (Nitroglycerin 0.4 Mg Tab Subl) 0.4 mg SL .Q5MIN PRN PRN Reason: Chest Pain Review of Systems Constitutional: no weight loss, no weight gain, no fever, no chills, no anorexi a, no weakness Breasts: deferred Cardiovascular: edema, shortness of breath, dyspnea on exertion, high blood pressure, leg edema, decreased exercise tolerance, no chest pain, no orthopnea, no syncope, no lightheadedness Respiratory: cough, shortness of breath, dyspnea on exertion, no hemoptysis Gastrointestinal: no abdominal pain, no nausea, no vomiting, no diarrhea, no melena Genitourinary Female: no hematuria Musculoskeletal: no gait dysfunction Integumentary: no rash, no wounds Neurological: no convulsions, no aphasia, no change in speech, no change in mentation, no memory loss Exam - Vital Signs Vital signs: Vital Signs Pulse Ox 90 12/06/20 07:30 Results - Lab Results 12/06/20 08:26 12/06/20 08:26 Most recent lab results Calcium 9.9 mg/dL (8.4-10.2) 12/06/20 08:26 Magnesium 2.30 mg/dL (1.7-2.3) 12/06/20 08:26 Assessment and Plan 1. ESRD: Patient with known h/o ESRD on maintenance hemodialysis, TTS schedule. Last outpatient hemodialysis was on 12/03. Hemodialysis: . 2. FEN: Volume overload, UF with HD as tolerated. Monitor lytes and volume status. 3. Acute hypoxemic respiratory failure: Likely 2/2 Asthma exacerbation. To r/o PE. Supplemental O2. 4. Asthma exacerbation: Per primary. 5. HIV infection: Continue home meds. 6. Anemia, POA: 2/2 ESRD. Epogen. 7. HTN: Continue home meds. Monitor BP. 8. Morbid obesity 2/2 excess calories. Subjective: Patient was seen and examined at the bedside. Examination: General appearance: well-developed, well-nourished, appears stated age, obese, resp distress noted HEENT: ATNC, PERRL, hearing intact, vision intact Neck: supple Respiratory: ctab, diminished Heart: regular, S1S2, no murmur Abdomen: obese, soft, BS heard, NT Integumentary: no rash, warm and dry Neurologic: no focal deficit, no asterixis, alert and oriented x3 Ext: trace LE edema noted Hemodialysis access: Left arm AVF Psychiatric: mood/affect appropriate, cooperative
[2020-12-06] MEDS ORDERED: SODIUM CHLORIDE 0.9% 100 ML IV PRN (11:23)
[2020-12-06] MEDS ORDERED: EPOETIN ALFA-EPBX 10,000 UNIT/1 ML VIAL SUB-Q PRN (11:25)
[2020-12-06] MEDS ORDERED: HEPARIN 10,000 UNITS/10 ML VIAL IV PRN (11:25)
--- NOTE | 2020-12-06 12:05 | Vascular Lab Report ---
DUPLEX DOPPLER LOWER EXTREMITY VEINS, LEFT INDICATION / CLINICAL INFORMATION: lle pain swelling. TECHNIQUE: Duplex doppler imaging was performed through the veins of the left lower extremity using venous compr ession and other maneuvers. COMPARISON: None available. FINDINGS: LEFT COMMON FEMORAL VEIN: Negative. LEFT FEMORAL VEIN: Negative. LEFT POPLITEAL VEIN: Negative. LEFT CALF VEINS: Negative. ADDITIONAL FINDINGS: None. IMPRESSION: 1. No sonographic evidence for DVT in the left lower extremity. Signer Name: Jabier Sexton MD Signed: 12/06/2020 12:00 PM Workstation Name: [id number]
[2020-12-06 12:38] LABS: Hepatitis B Surface Antigen Non-Reactive (Negative); Hepatitis C Virus Antibody Non-Reactive (NonReactive)
--- NOTE | 2020-12-06 13:23 | Nuclear Medicine Report ---
NUCLEAR MEDICINE PERFUSION LUNG SCAN INDICATION / CLINICAL INFORMATION: Chest pain, dyspnea, history of asthma. No known history of PE. TECHNIQUE: 5.5 mCi of Tc-99m MAA were given by IV. COMPARISON: Chest radiograph dated 12/06/2020. FINDINGS: PERFUSION: No significant perfusion defects. ADDITIONAL FINDINGS: None. IMPRESSION: 1. Low probability for pulmonary embolism. Signer Name: Beny Burns MD Signed: 12/06/2020 1:18 PM Workstation Name: [id number]
[2020-12-06] MEDS ORDERED: oxyCODONE /ACETAMINOPHEN 5-325MG TAB PO PRN (21:10)
[2020-12-06] MEDS ORDERED: METOCLOPRAMIDE 10 MG/2 ML INJ IV PRN (21:10)
[2020-12-06] MEDS ORDERED: ACETAMINOPHEN 325 MG TAB PO PRN (21:10)
[2020-12-06] MEDS ORDERED: HYDROmorphone 1 MG/1 ML INJ IV PRN (21:10)
[2020-12-06] MEDS ORDERED: ONDANSETRON 4 MG/2 ML INJ IV PRN (21:10)
[2020-12-06] MEDS ORDERED: IPRATROPIUM/ALBUTEROL SULFATE 3 ML AMPUL.NEB IH PRN (21:15)
[2020-12-06] MEDS ORDERED: NON-FORMULARY EACH (Ferric Citrate (Nf) 210 MG Tablet) PO PRN (21:22)
[2020-12-06] MEDS ORDERED: ALBUTEROL 2.5 MG/3 ML NEBU IH PRN (21:26)
[2020-12-06] MEDS ORDERED: COBICISTAT PO SCH (21:30)
[2020-12-06] MEDS ORDERED: DARUNAVIR PO SCH (21:30)
[2020-12-06] MEDS: FAMOTIDINE 20 MG/2 ML INJ IV SCH (23:22)
[2020-12-06] MEDS: HEPARIN 5,000 UNIT/1 ML VIAL SUB-Q SCH (23:23)
[2020-12-07 06:12] LABS: Hematocrit 29.2 % (30.3-42.9); Hemoglobin 9.5 gm/dl (10.1-14.3); Mean Corpuscular HGB Conc 33 % (30-34); Mean Corpuscular Volume 89 fl (79-97); Platelet Count 196 K/mm3 (140-440); Red Blood Count 3.28 M/mm3 (3.65-5.03); Red Cell Distribution Width 16.7 % (13.2-15.2)
[2020-12-07 06:22] LABS: Albumin 3.9 g/dL (3.9-5); Calcium 8.4 mg/dL (8.4-10.2)
[2020-12-07] MEDS: HEPARIN 5,000 UNIT/1 ML VIAL SUB-Q SCH ×2 (06:46→14:14)
[2020-12-07 07:28] LABS: Band Neutrophils # (Manual) 0.2 K/mm3; Total Cells Counted 100
[2020-12-07 07:29] LABS: Anisocytosis 1+; Ovalocytes Few; Platelet Estimate Consistent w Auto; Tear Drop Cells Few
--- NOTE | 2020-12-07 08:17 | History and Physical Report ---
History of Present Illness Date of examination: 12/06/20 Date of admission: 12/06/20 11:23 Chief complaint: Left foot infection and swelling Increasing shortness of breath and wheezing for 1 day History of present illness: 50-year-old female with history of end-stage renal disease on hemodialysis and HIV and hypertension comes in for left lower extremity swelling and foot swelling for the last 3 to 4 days. There is drainage between the second and third toes. Also complains of wheezing and chest tightness secondary to wheezing. No nausea no vomiting. No hematemesis. No fever or chills. Patient is compliant with her dialysis. - Past Medical History --Hypertension: Yes --Diabetes: Yes --GERD: Yes --Renal Disease: Yes (dialysis T, T, S) --Asthma: Yes --HIV: Yes (normal CD4 count May 2019) Additional medical history: anemia, uterine fibroids - Surgical History Additional Surgical History: Bilateral tubal ligation, left chest PermCath, LUE fistula - Social History Smoking Status: Never Smoker Review of Systems ROS: Stated complaint: SHORTNESS OF BREATH Other details as noted in HPI Constitutional: malaise, weakness. denies: fever Eyes: denies: eye discharge ENT: congestion. denies: epistaxis Respiratory: cough, shortness of breath, SOB with exertion, SOB at rest, wheezing Cardiovascular: chest pain, edema Gastrointestinal: denies: abdominal pain, vomiting Genitourinary: denies: dysuria Musculoskeletal: myalgia Neurological: weakness Hematological/Lymphatic: denies: easy bleeding Past History Past Medical History: other (See HPI.) Medications and Allergies Allergies Allergy/AdvReac Type Severity Reaction Status Date / Time No Known Allergies Allergy Verified 02/06/17 15:01 Home Medications Medication Instructions Recorded Confirmed Last Taken Type Atovaquone [Mepron] 750 mg PO BID 12/06/20 12/06/20 Unknown History Budesonide/Formoterol Fumarate 2 inh INHALATION QDAY 12/06/20 12/06/20 Unknown History [Symbicort 160-4.5 Mcg Inhaler] Darunavir/Cobicistat (Nf) 1 tab PO DAILY 12/06/20 12/06/20 Unknown History [Prezcobix 800 mg-150 mg (Nf)] Darunavir/Cobicistat (Nf) 1 tab PO DAILY 12/06/20 12/06/20 Unknown History [Prezcobix 800 mg-150 mg (Nf)] Dolutegravir [Tivicay] 1 tab PO DAILY 12/06/20 12/06/20 Unknown History Ferric Citrate (Nf) [Auryxia] 3 tab PO TID PRN 12/06/20 12/06/20 Unknown History Lactulose 10 gm PO QDAY PRN 12/06/20 12/06/20 Unknown History labetaloL [Labetalol 200mg TAB] 200 mg PO BID 12/06/20 12/06/20 Unknown History lamiVUDine [Epivir] 75 mg PO QDAY 12/06/20 12/06/20 Unknown History Active Meds: Active Medications Acetaminophen (Acetaminophen 325 Mg Tab) 650 mg PO Q4H PRN PRN Reason: Pain MILD(1-3)/Fever >100.5/SIMPSON Albuterol (Albuterol 2.5 Mg/3 Ml Nebu) 2.5 mg IH Q3HRT PRN PRN Reason: Wheezing Last Admin: 12/07/20 02:43 Dose: 2.5 mg Documented by: Albuterol/Ipratropium (Ipratropium/Albuterol Sulfate 3 Ml Ampul.Neb) 1 ampul IH QIDRT YARELI Atovaquone (Atovaquone 750 Mg/5 Ml Oral Susp) 750 mg PO BID [facility] Famotidine (Famotidine 20 Mg/2 Ml Inj) 10 mg IV BID [facility] Last Admin: 12/06/20 23:22 Dose: 10 mg Documented by: Heparin Sodium (Porcine) (Heparin 10,000 Units/10 Ml Vial) 3,000 unit IV SAVANNAH PRN PRN Reason: hemodialysis Heparin Sodium (Porcine) (Heparin 5,000 Unit/1 Ml Vial) 5,000 unit SUB-Q Q8HR [facility] Last Admin: 12/07/20 06:46 Dose: Not Given Documented by: Hydromorphone HCl (Hydromorphone 1 Mg/1 Ml Inj) 0.5 mg IV Q3H PRN PRN Reason: Pain , Severe (7-10) Sodium Chloride (Nacl 0.9%) 100 mls @ 999 mls/hr IV SAVANNAH PRN PRN Reason: Hypotension Levofloxacin/Dextrose (Levaquin 250mg/50ml) 250 mg in 50 mls @ 100 mls/hr IV Q48HR [facility] Labetalol HCl (Labetalol 200 Mg Tab) 200 mg PO BID [facility] Last Admin: 12/06/20 23:22 Dose: 200 mg Documented by: Lamivudine (Lamivudine 150 Mg Tab) 75 mg PO QDAY [facility] Metoclopramide HCl (Metoclopramide 10 Mg/2 Ml Inj) 10 mg IV Q6H PRN PRN Reason: Nausea And Vomiting Miscellaneous Medication (Darunavir/Cobicistat (Nf)) 1 tab PO DAILY [facility] Miscellaneous Medication (Ferric Citrate (Nf)) 3 tab PO TID PRN PRN Reason: Colic Nitroglycerin (Nitroglycerin 0.4 Mg Tab Subl) 0.4 mg SL .Q5MIN PRN PRN Reason: Chest Pain Ondansetron HCl (Ondansetron 4 Mg/2 Ml Inj) 4 mg IV Q8H PRN PRN Reason: Nausea And Vomiting Oxycodone/Acetaminophen (Oxycodone /Acetaminophen 5-325mg Tab) 1 tab PO Q6H PRN PRN Reason: Pain, Moderate (4-6) Sodium Chloride (Sodium Chloride 0.9% 10 Ml Flush Syringe) 10 ml IV BID [facility] Last Admin: 12/06/20 23:23 Dose: 10 ml Documented by: Sodium Chloride (Sodium Chloride 0.9% 10 Ml Flush Syringe) 10 ml IV PRN PRN PRN Reason: LINE FLUSH Exam - Constitutional Vitals: Temp Pulse Resp BP Pulse Ox 98.5 F 96 H 19 142/81 92 12/07/20 03:43 12/07/20 03:43 12/07/20 03:43 12/07/20 03:43 12/07/20 03:53 General appearance: Present: no acute distress, well-nourished - EENT Eyes: Present: PERRL ENT: hearing intact, clear oral mucosa - Neck Neck: Present: supple, normal ROM - Respiratory Respiratory effort: normal Respiratory: bilateral: CTA, rhonchi, wheezing - Cardiovascular Heart rate: 78 Rhythm: regular Heart Sounds: Present: S1 & S2. Absent: rub, click - Extremities Extremities: pulses symmetrical, No edema, abnormal (Left foot swelling especially in the second and third toe) Extremity abnormal: other (Left foot swelling male left second and third toe) Peripheral Pulses: within normal limits - Abdominal General gastrointestinal: Present: soft, non-tender, non-distended, normal bowel sounds Female genitourinary: Present: normal - Integumentary Integumentary: Present: clear, warm, dry - Musculoskeletal Musculoskeletal: gait normal, strength equal bilaterally - Psychiatric Psychiatric: appropriate mood/affect, intact judgment & insight - Neurologic Neurologic: CNII-XII intact, moves all extremities HEART Score - HEART Score EKG: Non-specific Age: 45-65 Risk factors: > 3 risk factors or hx of atherosclerotic disease Troponin: Troponin T 0.061 ng/mL (0.00-0.029) H 12/06/20 08:26 Troponin: 1-3x normal limit - Critical Actions Critical Actions: 4-6 pts:12-16.6% risk of adverse cardiac event. Should be admitted Results - Labs CBC & Chem 7: 12/07/20 05:33 12/07/20 05:33 Labs: Laboratory Last Values WBC 3.0 K/mm3 (4.5-11.0) L 12/07/20 05:33 RBC 3.28 M/mm3 (3.65-5.03) L 12/07/20 05:33 Hgb 9.5 gm/dl (10.1-14.3) L 12/07/20 05:33 Hct 29.2 % (30.3-42.9) L 12/07/20 05:33 MCV 89 fl (79-97) 12/07/20 05:33 MCH 29 pg (28-32) 12/07/20 05:33 MCHC 33 % (30-34) 12/07/20 05:33 RDW 16.7 % (13.2-15.2) H 12/07/20 05:33 Plt Count 196 K/mm3 (140-440) 12/07/20 05:33 [place] % (Auto) [employer] Protection [employer]ist 12/07/20 05:33 Add Manual Diff Complete 12/07/20 05:33 Total Counted 100 12/07/20 05:33 Seg Neuts % (Manual) 71.0 % (40.0-70.0) H 12/07/20 05:33 Band Neutrophils % 5.0 % 12/07/20 05:33 Lymphocytes % (Manual) 12.0 % (13.4-35.0) L 12/07/20 05:33 Monocytes % (Manual) 10.0 % (0.0-7.3) H 12/07/20 05:33 Basophils % (Manual) 2.0 % (0.0-1.8) H 12/07/20 05:33 Nucleated RBC % Not Reportable 12/07/20 05:33 Seg Neutrophils # Man 2.1 K/mm3 (1.8-7.7) 12/07/20 05:33 Band Neutrophils # 0.2 K/mm3 12/07/20 05:33 Lymphocytes # (Manual) 0.4 K/mm3 (1.2-5.4) L 12/07/20 05:33 Abs React Lymphs (Man) 0.0 K/mm3 12/07/20 05:33 Monocytes # (Manual) 0.3 K/mm3 (0.0-0.8) 12/07/20 05:33 Eosinophils # (Manual) 0.0 K/mm3 (0.0-0.4) 12/07/20 05:33 Basophils # (Manual) 0.1 K/mm3 (0.0-0.1) 12/07/20 05:33 Metamyelocytes # 0.0 K/mm3 12/07/20 05:33 Myelocytes # 0.0 K/mm3 12/07/20 05:33 Promyelocytes # 0.0 K/mm3 12/07/20 05:33 Blast Cells # 0.0 K/mm3 12/07/20 05:33 WBC Morphology Not Reportable 12/07/20 05:33 Hypersegmented Neuts Not Reportable 12/07/20 05:33 Hyposegmented Neuts Not Reportable 12/07/20 05:33 Hypogranular Neuts Not Reportable 12/07/20 05:33 Smudge Cells Not Reportable 12/07/20 05:33 Toxic Granulation Not Reportable 12/07/20 05:33 Toxic Vacuolation Not Reportable 12/07/20 05:33 Dohle Bodies Not Reportable 12/07/20 05:33 Pelger-Huet Anomaly Not Reportable 12/07/20 05:33 Tiffani Rods Not Reportable 12/07/20 05:33 Platelet Estimate Consistent w auto 12/07/20 05:33 Clumped Platelets Not Reportable 12/07/20 05:33 Plt Clumps, EDTA Not Reportable 12/07/20 05:33 Large Platelets Not Reportable 12/07/20 05:33 Giant Platelets Not Reportable 12/07/20 05:33 Platelet Satelliting Not Reportable 12/07/20 05:33 Plt Morphology Comment Not Reportable 12/07/20 05:33 RBC Morphology Not Reportable 12/07/20 05:33 Dimorphic RBCs Not Reportable 12/07/20 05:33 Polychromasia 1+ 12/07/20 05:33 Hypochromasia Not Reportable 12/07/20 05:33 Poikilocytosis Not Reportable 12/07/20 05:33 Anisocytosis 1+ 12/07/20 05:33 Microcytosis Not Reportable 12/07/20 05:33 Macrocytosis Not Reportable 12/07/20 05:33 Spherocytes Not Reportable 12/07/20 05:33 Pappenheimer Bodies Not Reportable 12/07/20 05:33 Sickle Cells Not Reportable 12/07/20 05:33 Target Cells Not Reportable 12/07/20 05:33 Tear Drop Cells Few 12/07/20 05:33 Ovalocytes Few 12/07/20 05:33 Helmet Cells Not Reportable 12/07/20 05:33 [place] Bodies Not Reportable 12/07/20 05:33 [place] Rings Not Reportable 12/07/20 05:33 Mart Cells Not Reportable 12/07/20 05:33 Bite Cells Not Reportable 12/07/20 05:33 Crenated Cell Not Reportable 12/07/20 05:33 Elliptocytes Not Reportable 12/07/20 05:33 Acanthocytes (Spur) Not Reportable 12/07/20 05:33 Rouleaux Not Reportable 12/07/20 05:33 Hemoglobin C Crystals Not Reportable 12/07/20 05:33 Schistocytes Not Reportable 12/07/20 05:33 Malaria parasites Not Reportable 12/07/20 05:33 Darryn Bodies Not Reportable 12/07/20 05:33 Hem Pathologist Commnt No 12/07/20 05:33 PT 14.3 Sec. (12.2-14.9) 12/06/20 08:26 INR 1.06 (0.87-1.13) 12/06/20 08:26 D-Dimer 359.11 ng/mlDDU (0-234) H 12/06/20 08:26 Sodium 138 mmol/L (137-145) 12/07/20 05:33 Potassium 4.5 mmol/L (3.6-5.0) 12/07/20 05:33 Chloride 96.9 mmol/L (98-107) L 12/07/20 05:33 Carbon Dioxide 25 mmol/L (22-30) 12/07/20 05:33 Anion Gap 21 mmol/L 12/07/20 05:33 BUN 39 mg/dL (7-17) H 12/07/20 05:33 Creatinine 9.6 mg/dL (0.6-1.2) H 12/07/20 05:33 Estimated GFR 5 ml/min 12/07/20 05:33 BUN/Creatinine Ratio 4 % 12/07/20 05:33 Glucose 111 mg/dL (65-100) H 12/07/20 05:33 Calcium 8.4 mg/dL (8.4-10.2) D 12/07/20 05:33 Magnesium 2.30 mg/dL (1.7-2.3) 12/06/20 08:26 Total Bilirubin 0.60 mg/dL (0.1-1.2) 12/07/20 05:33 AST 18 units/L (5-40) 12/07/20 05:33 ALT 13 units/L (7-56) 12/07/20 05:33 Alkaline Phosphatase 316 units/L (35-129) H 12/07/20 05:33 Total Creatine Kinase 262 units/L (30-135) H 12/06/20 08:26 Troponin T 0.061 ng/mL (0.00-0.029) H 12/06/20 08:26 NT-Pro-B Natriuret Pep 03142 pg/mL (0-450) H 12/06/20 08:26 Total Protein 6.8 g/dL (6.3-8.2) 12/07/20 05:33 Albumin 3.9 g/dL (3.9-5) 12/07/20 05:33 Albumin/Globulin Ratio 1.3 % 12/07/20 05:33 Triglycerides 95 mg/dL (2-149) 12/06/20 08:26 Cholesterol 142 mg/dL (50-199) 12/06/20 08:26 LDL Cholesterol Direct 86 mg/dL (50-130) 12/06/20 08:26 HDL Cholesterol 41 mg/dL (40-59) 12/06/20 08:26 Cholesterol/HDL Ratio 3.46 % 12/06/20 08:26 HCG, Quant < 2 mIU/mL (0-4) 12/06/20 08:26 Hepatitis A IgM Ab Non-reactive (NonReactive) 12/06/20 08:26 Hep Bs Antigen Non-reactive (Negative) 12/06/20 08:26 Hep B Core IgM Ab Non-reactive (NonReactive) 12/06/20 08:26 Hepatitis C Antibody Non-reactive (NonReactive) 12/06/20 08:26 Short CBC 12/06/20 12/07/20 Range/Units 08:26 05:33 WBC 4.0 L 3.0 L (4.5-11.0) K/mm3 Hgb 9.1 L 9.5 L (10.1-14.3) gm/dl Hct 28.4 L 29.2 L (30.3-42.9) % Plt Count 182 196 (140-440) K/mm3 [facility] 12/06/20 12/07/20 08:26 05:33 Sodium 143 138 Potassium 4.8 4.5 Chloride 100.0 96.9 L Carbon Dioxide 25 25 BUN 51 H 39 H Creatinine 15.1 H 9.6 H Glucose 83 111 H Calcium 9.9 8.4 D Cardiac Enzymes 12/06/20 12/06/20 Range/Units 08:26 08:26 Total Creatine Kinase 262 H (30-135) units/L Troponin T 0.061 H (0.00-0.029) ng/mL Liver Function 12/07/20 Range/Units 05:33 Total Bilirubin 0.60 (0.1-1.2) mg/dL AST 18 (5-40) units/L ALT 13 (7-56) units/L Alkaline Phosphatase 316 H (35-129) units/L Albumin 3.9 (3.9-5) g/dL - Imaging and Cardiology Imaging and Cardiology: Chest x-ray There is mild venous congestion Duplex scan of lower extremity No sonographic evidence for DVT in the left lower extremity Nuclear medicine perfusion only lung scan No low probability for pulmonary embolism Assessment and Plan Advance Directives: Yes (Full code) VTE prophylaxis?: Chemical Plan of care discussed with patient/family: Yes - Patient Problems (1) Cellulitis of left foot Current Visit: Yes Status: Acute Plan to address problem: Patient initiated on IV Levaquin Wound care consult (2) Volume overload Current Visit: Yes Status: Acute Plan to address problem: Patient is volume overload Needs hemodialysis with ultrafiltration may need hemodialysis tomorrow also (3) ESRD (end stage renal disease) on dialysis Current Visit: Yes Status: Chronic Plan to address problem: #8 hemodialysis Nephrology consulted (4) HIV (human immunodeficiency virus infection) Current Visit: No Status: Chronic Qualifiers: HIV symptom status: unspecified Qualified Code(s): B20 - Human immunodeficiency virus [HIV] disease Plan to address problem: Continue antiretrovirals (5) Hypertension Current Visit: No Status: Chronic Qualifiers: Hypertension type: primary hypertension Qualified Code(s): I10 - Essential (primary) hypertension Plan to address problem: Continue antihypertensives and adjust medications (6) DVT prophylaxis Current Visit: Yes Status: Acute Plan to address problem: On heparin and GI prophylaxis
[2020-12-07] MEDS: IPRATROPIUM/ALBUTEROL SULFATE 3 ML AMPUL.NEB IH SCH ×4 (08:48→21:26)
[2020-12-07] MEDS ORDERED: ATOVAQUONE 750 MG/5 ML ORAL SUSP PO SCH (10:00)
--- NOTE | 2020-12-07 11:48 | Progress Note ---
Assessment and Plan 1. ESRD: Patient with known h/o ESRD on maintenance hemodialysis, TTS schedule. Last outpatient hemodialysis was on 12/03. Hemodialysis: 12/06. 2. FEN: Volume overload, UF with HD as tolerated. Monitor lytes and volume status. 3. Acute hypoxemic respiratory failure: Likely 2/2 Asthma exacerbation. Symptoms are better today. 4. Asthma exacerbation: Per primary. 5. HIV infection: Continue home meds. 6. Anemia, POA: 2/2 ESRD. Epogen. 7. HTN: Continue home meds. Monitor BP. 8. Morbid obesity 2/2 excess calories. Subjective: Patient was seen and examined at the bedside. Doing much better today. Examination: General appearance: well-developed, well-nourished, appears stated age, obese, not in distress HEENT: ATNC, PERRL, hearing intact, vision intact Neck: supple Respiratory: ctab, diminished breath sounds Heart: regular, S1S2, no murmur Abdomen: obese, soft, BS heard, NT Integumentary: no rash, warm and dry Neurologic: no focal deficit, no asterixis, alert and oriented x3 Ext: trace L LE edema noted Hemodialysis access: Left arm AVF Psychiatric: mood/affect appropriate, cooperative Subjective Date of service: 12/07/20 Objective - Vital Signs Vital signs: Vital Signs - 12hr 12/07/20 12/07/20 12/07/20 02:43 03:43 03:53 Temperature 98.5 F Pulse Rate 96 H Pulse Rate [ 100 H Bilateral] Respiratory 19 Rate Respiratory 20 Rate [Bilateral ] Blood Pressure 142/81 O2 Sat by Pulse 87 92 Oximetry 12/07/20 12/07/20 12/07/20 08:00 08:43 08:51 Temperature 98.0 F Pulse Rate 99 H Pulse Rate [ 102 H Bilateral] Respiratory 20 Rate Respiratory 20 Rate [Bilateral ] Blood Pressure 154/94 O2 Sat by Pulse 93 94 Oximetry - Lab 12/07/20 05:33 12/07/20 05:33 Most recent lab results Calcium 8.4 mg/dL (8.4-10.2) D 12/07/20 05:33 Magnesium 2.30 mg/dL (1.7-2.3) 12/06/20 08:26 Medications & Allergies - Medications Allergies/Adverse Reactions: Allergies No Known Allergies Allergy (Verified 02/06/17 15:01) Home Medications: Home Medications Medication Instructions Recorded Confirmed Last Taken Type Atovaquone [Mepron] 750 mg PO BID 12/06/20 12/06/20 Unknown History Darunavir/Cobicistat (Nf) 1 tab PO DAILY 12/06/20 12/06/20 Unknown History [Prezcobix 800 mg-150 mg (Nf)] Darunavir/Cobicistat (Nf) 1 tab PO DAILY 12/06/20 12/06/20 Unknown History [Prezcobix 800 mg-150 mg (Nf)] Dolutegravir [Tivicay] 1 tab PO DAILY 12/06/20 12/06/20 Unknown History Ferric Citrate (Nf) [Auryxia] 3 tab PO TID PRN 12/06/20 12/06/20 Unknown History Lactulose 10 gm PO QDAY PRN 12/06/20 12/06/20 Unknown History lamiVUDine [Epivir] 75 mg PO QDAY 12/06/20 12/06/20 Unknown History Albuterol Mdi (or & Nicu Only) 2 puff IH QID PRN 30 Days #1 12/07/20 Unknown Rx [ProAir HFA Inhaler] Budesonide/Formoterol Fumarate 2 inh INHALATION QDAY #1 12/07/20 Unknown Rx [Symbicort 160-4.5 Mcg Inhaler] labetaloL [Labetalol 200mg TAB] 200 mg PO BID #60 tablet 12/07/20 Unknown Rx levoFLOXacin [Levaquin TAB] 500 mg PO QDAY 7 Days #7 tablet 12/07/20 Unknown Rx Active Medications: Generic Name Dose Route Start Last Admin Trade Name Jose Antonioq PRN Reason Stop Dose Admin Acetaminophen 650 mg 12/06/20 21:10 Acetaminophen 325 Mg Tab PO Q4H PRN Pain MILD(1-3)/Fever >100.5/SIMPSON Albuterol 2.5 mg 12/06/20 21:26 12/07/20 02:43 Albuterol 2.5 Mg/3 Ml Nebu IH 2.5 mg Q3HRT PRN Administration Wheezing Albuterol/Ipratropium 1 ampul 12/07/20 08:00 12/07/20 08:48 Ipratropium/Albuterol Sulfate 3 Ml Ampul.Neb IH 1 ampul QIDRT YARELI Administration Atovaquone 750 mg 12/07/20 10:00 Atovaquone 750 Mg/5 Ml Oral Susp PO BID YARELI Famotidine 10 mg 12/06/20 22:00 12/06/20 23:22 Famotidine 20 Mg/2 Ml Inj IV 10 mg BID YARELI Administration Heparin Sodium (Porcine) 3,000 unit 12/06/20 11:25 Heparin 10,000 Units/10 Ml Vial IV SAVANNAH PRN hemodialysis Heparin Sodium (Porcine) 5,000 unit 12/06/20 22:00 12/07/20 06:46 Heparin 5,000 Unit/1 Ml Vial SUB-Q Not Given Q8HR YARELI Hydromorphone HCl 0.5 mg 12/06/20 21:10 Hydromorphone 1 Mg/1 Ml Inj IV Q3H PRN Pain , Severe (7-10) Sodium Chloride 100 mls @ 999 mls/hr 12/06/20 11:23 Nacl 0.9% IV SAVANNAH PRN Hypotension Levofloxacin/Dextrose 250 mg in 50 mls @ 100 mls/hr 12/07/20 10:00 Levaquin 250mg/50ml IV Q48HR [facility] Labetalol HCl 200 mg 12/06/20 22:00 12/06/20 23:22 Labetalol 200 Mg Tab PO 200 mg BID YARELI Administration Lamivudine 75 mg 12/06/20 22:00 Lamivudine 150 Mg Tab PO QDAY [facility] Metoclopramide HCl 10 mg 12/06/20 21:10 Metoclopramide 10 Mg/2 Ml Inj IV Q6H PRN Nausea And Vomiting Miscellaneous Medication 1 tab 12/06/20 21:30 Darunavir/Cobicistat (Nf) PO DAILY [facility] Miscellaneous Medication 3 tab 12/06/20 21:22 Ferric Citrate (Nf) PO TID PRN Colic Nitroglycerin 0.4 mg 12/06/20 08:55 Nitroglycerin 0.4 Mg Tab Subl SL .Q5MIN PRN Chest Pain Ondansetron HCl 4 mg 12/06/20 21:10 Ondansetron 4 Mg/2 Ml Inj IV Q8H PRN Nausea And Vomiting Oxycodone/Acetaminophen 1 tab 12/06/20 21:10 Oxycodone /Acetaminophen 5-325mg Tab PO Q6H PRN Pain, Moderate (4-6) Sodium Chloride 10 ml 12/06/20 22:00 07/13/21 23:23 Sodium Chloride 0.9% 10 Ml Flush Syringe IV 10 ml BID YARELI Administration Sodium Chloride 10 ml 12/06/20 21:10 Sodium Chloride 0.9% 10 Ml Flush Syringe IV PRN PRN LINE FLUSH
[2020-12-07] MEDS: FAMOTIDINE 20 MG/2 ML INJ IV SCH (12:19)
[2020-12-07] MEDS ORDERED: DARUNAVIR 800 MG TAB PO SCH (14:00)
[2020-12-07] MEDS ORDERED: RITONAVIR 100 MG TAB PO SCH (14:00)
[2020-12-07] MEDS ORDERED: lamiVUDine 50 MG/5 ML ORAL LIQD PO SCH (14:00)
[2020-12-07] MEDS ORDERED: DOLUTEGRAVIR 50 MG TAB PO SCH (14:00)
[2020-12-07] MEDS ORDERED: METOCLOPRAMIDE 10 MG/2 ML INJ IV PRN (15:00)
[2020-12-07 15:28] VITALS: BP 132/81
--- NOTE | 2020-12-07 18:56 | Discharge Summary ---
Providers - Providers Date of Admission: 12/07/20 09:33 Date of discharge: 12/07/20 Attending physician: HAO DOOLYE 12/06/20 10:29 Consult to Physician [CONS] Urgent Comment: Consulting Provider: NENA MORALES Physician Instructions: Reason For Exam: volume overload 12/07/20 07:49 Consult to Wound/ET Nurse [CONS] Urgent Reason For Exam: wound eval Primary care physician: [employer] Hospitalization Condition: Stable Hospital course: History of present illness: 50-year-old female with history of end-stage renal disease on hemodialysis and HIV and hypertension comes in for left lower extremity swelling and foot swelling for the last 3 to 4 days. There is drainage between the second and th ird toes. Also complains of wheezing and chest tightness secondary to wheezing. No nausea no vomiting. No hematemesis. No fever or chills. Patient is compliant with her dialysis. - Imaging and Cardiology Imaging and Cardiology: Chest x-ray There is mild venous congestion Duplex scan of lower extremity No sonographic evidence for DVT in the left lower extremity Nuclear medicine perfusion only lung scan No low probability for pulmonary embolism Assessment and Plan Advance Directives: Yes (Full code) VTE prophylaxis?: Chemical Plan of care discussed with patient/family: Yes - Patient Problems (1) Cellulitis of left foot Current Visit: Yes Status: Acute Plan to address problem: Swelling of the left foot improved Patient feels a lot better patient attributes it to infection to nail care Patient wants to go home on oral Levaquin see primary care physician if necessary (2) Volume overload Current Visit: Yes Status: Acute Plan to address problem: Patient is volume overload Needs hemodialysis with ultrafiltration may need hemodialysis tomorrow also Patient feels much better after increased ultrafiltration and volume removal (3) ESRD (end stage renal disease) on dialysis Current Visit: Yes Status: Chronic Plan to address problem: Hemodialysis done Hemodialysis due tomorrow (4) HIV (human immunodeficiency virus infection) Current Visit: No Status: Chronic Qualifiers: HIV symptom status: unspecified Qualified Code(s): B20 - Human immunodeficiency virus [HIV] disease Plan to address problem: Continue antiretrovirals (5) Hypertension Current Visit: No Status: Chronic Qualifiers: Hypertension type: primary hypertension Qualified Code(s): I10 - Essential (primary) hypertension Plan to address problem: Continue antihypertensives and adjust medications (6) DVT prophylaxis Current Visit: Yes Status: Acute Plan to address problem: On heparin and GI prophylaxis Disposition: DC- TO HOME OR SELFCARE Final Discharge Diagnosis (Prints w/discharge instructions): Left foot cellulitis. End-stage renal disease on hemodialysis. Hypertension. HIV Time spent for discharge: 35 minutes - Discharge Diagnoses (1) Cellulitis of left foot Status: Acute (2) Volume overload Status: Acute (3) ESRD (end stage renal disease) on dialysis Status: Chronic (4) HIV (human immunodeficiency virus infection) Status: Chronic Qualifiers: HIV symptom status: unspecified Qualified Code(s): B20 - Human immunodeficiency virus [HIV] disease (5) Hypertension Status: Chronic Qualifiers: Hypertension type: primary hypertension Qualified Code(s): I10 - Essential (primary) hypertension (6) DVT prophylaxis Status: Acute Core Measure Documentation - Palliative Care Palliative Care/ Comfort Measures: Not Applicable - Core Measures Any of the following diagnoses?: none Exam - Constitutional Vitals: Temp Pulse Resp BP Pulse Ox 96.7 F L 91 H 20 132/81 92 12/07/20 15:22 12/07/20 15:22 12/07/20 15:22 12/07/20 15:22 12/07/20 15:22 General appearance: Present: no acute distress, well-nourished - EENT Eyes: Present: PERRL ENT: hearing intact, clear oral mucosa - Neck Neck: Present: supple, normal ROM - Respiratory Respiratory effort: normal Respiratory: bilateral: CTA - Cardiovascular Heart rate: 78 Rhythm: regular Heart Sounds: Present: S1 & S2. Absent: rub, click - Extremities Extremities: pulses symmetrical, No edema, abnormal (Left foot swelling has gone down) Extremity abnormal: other (Second and third toe swelling has gone down) Peripheral Pulses: within normal limits - Abdominal General gastrointestinal: Present: soft, non-tender, non-distended, normal bowel sounds Female genitourinary: Present: normal - Integumentary Integumentary: Present: clear, warm, dry - Musculoskeletal Musculoskeletal: gait normal, strength equal bilaterally - Psychiatric Psychiatric: appropriate mood/affect, intact judgment & insight - Neurologic Neurologic: CNII-XII intact, moves all extremities - Allied Health Allied health notes reviewed: nursing, case management Plan Activity: no restrictions Diet: renal Follow up with: PRIMARY CAREMD [Primary Care Provider] - 3-5 Days
== END 2020-12-07 22:08 | disposition home or self-care (01) ==
LOC: ED 07:02 → 4A 11:23 → INTOOBSV 12-07 09:33 → OBSVTOIN 12-07 09:33
PROVIDERS: ADMIT Internal Medicine; ATTEND Internal Medicine
DX: J96.01 Acute respiratory failure with hypoxia (principal); L03.116 Cellulitis of left lower limb; E87.70 Fluid overload, unspecified; B20 Human immunodeficiency virus [HIV] disease; I12.0 Hypertensive chronic kidney disease with stage 5 chronic kidney disease or end stage renal disease; N18.6 End stage renal disease; E11.22 Type 2 diabetes mellitus with diabetic chronic kidney disease; E66.01 Morbid (severe) obesity due to excess calories; R07.89 Other chest pain; K21.9 Gastro-esophageal reflux disease without esophagitis; J45.901 Unspecified asthma with (acute) exacerbation; Z99.2 Dependence on renal dialysis; Z98.51 Tubal ligation status; Z79.899 Other long term (current) drug therapy; Z98.890 Other specified postprocedural states; Z68.41 Body mass index [BMI] 40.0-44.9, adult
CPT/HCPCS: 36415; 71045; 78580; 80048; 80053; 80061; 80074; 82550; 83036; 83735; 83880; 84484; 84702; 85025; 85027; 85379; 85610; 93005; 93971; 94640; 96365; 96366; 96367; 96372; 96375; 99291; A9540; G0257; G0378; J0360; J0885; J1644; J1940; J1956; J2930; J3475; 85007; 94644